=== PATIENT | male | born 1965 | race Caucasian/White ===

== ENCOUNTER 2018-01-09 07:22 | Day surgery (SDC) | payer OTHER, SELFPAY ==
[2018-01-09 07:43] VITALS: BP 144/72; PULSE 60; RESP 12; TEMP 36.5; O2SAT 97; BMI 40.6
--- NOTE | 2018-01-09 09:17 | PM.HP.1 ---
History of Present Illness Date Patient Seen: 01/09/18 Time Patient Seen: 09:09 Chief complaint: [id number] SCREENING COLONOSCOPY Narrative: Patient is a gentleman for screening colonoscopy. He has just turned 52. No family history of colon cancer. Patient History Medical History Healthy adult (Acute) Family & Social History Social History: household members spouse Tobacco & Substance use: Smoking Status Former smoker Meds Home Medications Medication Instructions Recorded Confirmed Type No Known Home Medications 10/09/17 10/09/17 History Allergies Allergy/AdvReac Type Severity Reaction Status Date / Time No Known Drug Allergies Allergy Verified 01/02/18 14:47 Review of Systems Review of Systems All systems reviewed & are unremarkable except as noted in HPI and below Exam Vital Signs (past 8 hours): - 01/09/18 07:43 Temperature 97.7 F Pulse Rate 60 Respiratory Rate 12 Blood Pressure 144/72 H Pulse Oximetry 97 Oxygen Delivery Method Room Air Narrative Exam Narrative: No apparent distress. Lungs are clear no rales rhonchi heart regular rate and rhythm no murmur or gallop abdomen is protuberant soft nontender without hernia. No liver or spleen enlargement. Patient is alert and oriented x3. Assessment & Plan Plan: Assessment/Plan Narrative: Here for screening colonoscopy. I have discussed the procedure and the rationale with the patient including risks of bleeding, perforation which would necessitate a major operation, failure to find remove all lesions and the potential to tattoo. They appeared to understand and wished to proceed.
--- NOTE | 2018-01-09 09:20 | PM.PREOP ---
Pre-operative Note Interval Note Pre-op Check: Yes History & Physical exam performed today by Physician Changes: No ASA Class (for procedural sedation): I
[2018-01-09] MEDS: MIDAZOLAM 5 MG/5 ML VIAL IV (09:50)
[2018-01-09] MEDS: fentaNYL 250 MCG/5 ML INJ IV (09:51)
[2018-01-09 10:07] VITALS: BP 114/61; PULSE 70; RESP 16; TEMP 36.4; O2SAT 97
--- NOTE | 2018-01-09 10:10 | PM.OP.ENDO ---
Operative Date/Time/Diagnoses Date of procedure: 01/09/18 Time of procedure: 10:10 Pre-op diagnosis: Screening exam. This is his 1st colonoscopy. He just turned 52. Post-op diagnosis: same (Normal exam) Procedure & Clinicians Study performed: Colonoscopy Same procedure as scheduled: Yes Indications: Screening due date age Surgeon: Gallo Kwon Procedure Notes SCOAP/Timeout: Performed Procedure in detail: The patient was placed in the left lateral decubitus position and underwent IV sedation directed by the surgeon consisting of fentanyl and Versed. Digital exam was unremarkable however I could not feel his prostate due to his anatomy and the length of my finger. The scope was inserted and advanced through the rectum into the sigmoid, descending, transverse, and ascending colon. The cecum was reached identified by the ileocecal valve and the appendiceal opening. The scope was gradually brought out. No Polyps were found. The scope ultimately was retroflexed in the rectum. The appearance was normal. The scope was removed and the patient tolerated the procedure well Scope withdrawal time: 14 min Sedation minutes: 38 Findings: other findings (Normal exam) Specimen(s): none sent Complications: none Recommendations: Colonscopy in 10 years Follow up: as needed Disposition: PACU
[2018-01-09 10:30] VITALS: BP 123/73; PULSE 50; TEMP 36.4; O2SAT 97
== END 2018-01-09 10:44 | disposition home or self-care (01) ==
PROVIDERS: Specialist; Visit Provider Surgery
PROC: 0DJD8ZZ Inspection of Lower Intestinal Tract, Via Natural or Artificial Opening Endoscopic (ICD-10-PCS; CPT 45378; principal; 2018-01-09 08:45)
DX: Z12.11 Encounter for screening for malignant neoplasm of colon (principal); Z87.891 Personal history of nicotine dependence
CPT/HCPCS: 45378; 99152; 99153; J2250; J3010

== ENCOUNTER → 2018-09-29 11:49 | Outpatient (CLI) | payer OTHER, SELFPAY ==
--- NOTE | 2018-09-29 | DI.RAD.S_ITS ---
PROCEDURE: XR KNEE RT 3V INDICATIONS: Rt knee pain TECHNIQUE: 3 views of the knee were acquired. COMPARISON: None. FINDINGS: Bones: No fractures or dislocations. Mild tricompartment osteophyte is seen. No suspicious bony lesions. Soft tissues: Moderate suprapatellar joint effusion is noted. No suspicious soft tissue calcifications. IMPRESSION: Mild tricompartment osteoarthritis and moderate suprapatellar joint effusion. No fracture or dislocation. Dictated by: Carlitos Burks M.D. on 09/29/2018 at 13:24 Approved by: Carlitos Burks M.D. on 09/29/2018 at 13:32
== END ==
PROVIDERS: PCP Family Medicine; Visit Provider Family Medicine
DX: M25.561 Pain in right knee (principal); M17.11 Unilateral primary osteoarthritis, right knee; M25.461 Effusion, right knee
CPT/HCPCS: 73562

== ENCOUNTER → 2019-02-23 14:41 | Outpatient (CLI) | payer OTHER, SELFPAY ==
--- NOTE | 2019-02-23 | DI.RAD.S_ITS ---
PROCEDURE: XR KNEE LT 3V INDICATIONS: LEFT KNEE PAIN TECHNIQUE: 3 views of the knee were acquired. COMPARISON: [facility], CR, XR KNEE RT 3V, 09/29/2018, 11:55. FINDINGS: Bones: No fractures or dislocations. Tricompartmental degenerative changes of the left knee with joint space narrowing of the medial femorotibial compartment. No suspicious bony lesions. Soft tissues: There is a small joint effusion. No suspicious soft tissue calcifications. IMPRESSION: 1. Tricompartmental left knee osteoarthrosis with joint space narrowing of the medial femorotibial compartment. 2. Small suprapatellar joint effusion. Dictated by: Gerard Romero M.D. on 02/23/2019 at 17:10 Approved by: Gerard Romero M.D. on 02/23/2019 at 17:12
== END ==
PROVIDERS: PCP Family Medicine; Visit Provider Family Medicine
DX: M25.562 Pain in left knee (principal); M17.11 Unilateral primary osteoarthritis, right knee; M25.462 Effusion, left knee
CPT/HCPCS: 73562

== ENCOUNTER → 2019-03-26 18:03 | Outpatient (CLI) | payer OTHER, SELFPAY ==
--- NOTE | 2019-03-26 18:05 | DI.MRI.S_ITS ---
PROCEDURE: MR KNEE LT WO CON INDICATIONS: PAIN IN LEFT KNEE TECHNIQUE: Noncontrast sagittal PD fast spin echo and T2 fast spin echo with fat saturation, sagittal 3-D FLASH with fat saturation; coronal T1 spin echo and PD fast spin echo with fat saturation, and axial PD fast spin echo with fat saturation through the knee. COMPARISON: [facility], CR, XR KNEE LT 3V, 02/23/2019, 14:47. FINDINGS: Image quality: Excellent. Menisci: Medial meniscal extrusion. There is a complex tear in the posterior horn of the medial meniscus near the posterior root ligament. Degenerative tear is noted in the body and posterior horn of the medial meniscus. The lateral meniscus demonstrates normal morphology and internal signal. Cruciate ligaments: The anterior cruciate ligament appears intact. The proximal posterior cruciate ligament is focally thickened and demonstrates mild increased signal, likely secondary to partial tear scarring. Medial structures: The medial collateral ligament appears intact. The semimembranosus tendon insertionsand meniscocapsular junction appear intact. Visualized portions of the pes anserinus tendons appear normal. No abnormal bursal fluid. Lateral structures: The lateral collateral ligament and the biceps femoris tendon appear intact. The popliteus tendon appears normal; the popliteofibular ligament appears intact. The posterosuperior and anteroinferior popliteomeniscal fascicles appear intact. The arcuate and fabellofibular ligaments appear intact, on either side of the lateral inferior geniculate artery. Iliotibial band appears normal. Anterior structures: The quadriceps and patellar tendons appear intact. Patellar alignment is normal. No femoral trochlear dysplasia or ventral trochlear prominence. No edema in the infrapatellar fat pad. Bones and cartilage: No fractures. There is pulmonary edema consistent with contusion in the medial femoral condyle and medial tibial plateau. The cartilage of the medial and lateral femorotibial compartments, as well as the patellofemoral compartment, appears normal in thickness. Joint space: There is moderate knee joint effusion. There is a moderate size Hobsno's cyst. Normal appearing synovial plicae are incidentally noted. IMPRESSION: 1. Complex tear involving the posterior horn of the medial meniscus near the posterior root ligament. In addition, there is degenerative tear of the body and posterior horn of the medial meniscus. 2. Chronic partial tear/scarring of the posterior cruciate ligament. 3. Bone marrow edema of the medial femoral condyle and medial tibial plateau, consistent with bone contusions. 4. Moderate knee joint effusion. 5. Moderate-sized Hobson's cyst. Dictated by: Ankit Diaz M.D. on 03/29/2019 at 10:36 Transcribed by: VALERIE on 03/29/2019 at 18:32 Approved by: Ankit Diaz M.D. on 03/30/2019 at 8:42
== END ==
PROVIDERS: PCP Family Medicine; Visit Provider Family Medicine
DX: M25.562 Pain in left knee (principal); S83.232A Complex tear of medial meniscus, current injury, left knee, initial encounter; S83.522A Sprain of posterior cruciate ligament of left knee, initial encounter; M25.462 Effusion, left knee; M71.22 Synovial cyst of popliteal space [Baker], left knee
CPT/HCPCS: 73721

== ENCOUNTER 2021-04-19 10:40 | Inpatient (IN) | payer OTHER, SELFPAY ==
[2021-04-19] VITALS (30 sets, daily range): BP systolic 113–156; BP diastolic 64–96; PULSE 53–146; RESP 12–25; TEMP 36.2–36.9; O2SAT 96–100; BMI 41.1; BMI 40.5
--- NOTE | 2021-04-19 10:55 | DI.RAD.S_ITS ---
PROCEDURE: XR CHEST 1V INDICATIONS: chest pain TECHNIQUE: One view of the chest was acquired. COMPARISON: None. FINDINGS: Surgical changes and devices: None. Lungs and pleura: An incomplete inspiratory result is noted, causing a crowded appearance to the lung markings. No focal infiltrates are seen. No pneumothorax or significant pleural effusions are seen. Mediastinum: Mediastinal contours appear normal. Heart size is normal. Bones and chest wall: No suspicious bony lesions. Age-appropriate bony degenerative changes are seen. Overlying soft tissues appear unremarkable. IMPRESSION: Limited portable chest examination, without a significant cardiopulmonary abnormality identified. Dictated by: Ivan Gutierrez M.D. on 04/19/2021 at 10:29 Approved by: Ivan Gutierrez M.D. on 04/19/2021 at 10:30
--- NOTE | 2021-04-19 11:10 | ED.ARRPALP ---
HPI - Arrhythmia/Palpitations General Chief Complaint: Arrhythmia/Palpitations Stated Complaint: Resting heart rate 144 Time Seen by Provider: 04/19/21 11:00 Source: patient Mode of arrival: Wheelchair Limitations: no limitations History of Present Illness HPI narrative: Patient is a 56-year-old male. No diagnosed medical problems. Here for evaluation of a fast heart rate. He states that 2 times prior in his life he has had episodes of a fast heart rate. Each of the times resolved after a couple hours. The episode that he currently has has been going on for the past 3 days. No chest pain. No shortness of breath. No lightheadedness. No headache. Did try will were essentially Valsalva maneuvers that were described to him by a provider in the past. These maneuvers were not successful. Since the symptoms were not improving he came to the emergency department for evaluation Related Data Home Medications Medication Instructions Recorded Confirmed No Known Home Medications 04/19/21 04/19/21 Allergies Allergy/AdvReac Type Severity Reaction Status Date / Time No Known Drug Allergies Allergy Verified 04/19/21 10:56 Review of Systems Constitutional Constitutional: Denies fever(s) Cardiovascular Cardiovascular: Denies chest pain, Reports rapid heart rate and Denies dyspnea Respiratory Respiratory: Denies cough and Denies dyspnea Gastrointestinal Gastrointestinal: Reports system reviewed and no additional complaints, except as documented Integumentary/Breasts Skin/Breast: Reports system reviewed and no additional complaints, except as documented Neurologic Neurologic: Reports system reviewed and no additional complaints, except as documented Hematologic/Lymphatic On Anticoagulants: No Allergic/Immunologic Allergic/Immunologic: Reports system reviewed and no additional complaints, except as documented Patient History Medical History Healthy adult Morbid obesity with BMI of 40.0-44.9, adult Obstructive sleep apnea of adult Primary insomnia Social History household members: spouse Smoking Status: Former smoker alcohol intake: current Smoking Status: Former smoker alcohol intake frequency: holidays/special occasions only Substance Use Type: does not use Exam Initial Vital Signs Initial Vital Signs: Vital Signs Temperature 98.5 F 04/19/21 10:50 Pulse Rate 144 H 04/19/21 10:50 Respiratory Rate 25 H 04/19/21 10:50 Blood Pressure 135/96 H 04/19/21 10:50 Pulse Oximetry 97 04/19/21 10:50 HENMT Head: normal to inspection and normocephalic Resp Effort & Inspection: normal respiratory effort Auscultation: clear to auscultation bilaterally Cardio Rate: tachycardic Rhythm: abnormal rhythm GI Inspection: normal to inspection Skin General: no rashes or lesions noted Neuro General: patient alert, patient awake, patient oriented x3 and moves all extremities Speech: speech normal Extrem General: normal to inspection and capillary refill normal Psych Appearance: grossly normal and well kempt Course Orders Ordered: ED Orders 04/19/21 10:50 NT-proBNP (BNP-Adult 18+) Stat Thyroid Stimulating Hormone Stat 04/19/21 10:55 XR chest 1V Stat Complete Blood Count AUTO DIFF Stat Comprehensive Metabolic Panel Stat Lipase Stat Magnesium Stat Partial Thromboplastin Time Stat Prothrombin Time INR Stat Troponin & CK Cardiac Panel Stat EKG-12 Lead Stat 04/19/21 11:00 COVID19 -Nasal swab/Pre-Proc Stat Acetaminophen (Acetaminophen 325 Mg Tablet) 650 mg PO Q6HR PRN PRN Reason: Fever/Mild Pain (1-3) Apixaban (Apixaban 5 Mg Tablet) 5 mg PO BID PITER Aspirin (Aspirin Ec 81 Mg Tablet) 81 mg PO DAILY PITER Atorvastatin Calcium (Atorvastatin 20 Mg Tablet) 40 mg PO BEDTIME PITER Diltiazem HCl (Diltiazem 30 Mg Tablet) 30 mg PO Q6HR PITER Last Admin: 04/19/21 15:20 Dose: 30 mg Documented by: LANDY Diltiazem HCl 125 mg/ Dextrose 125 mls @ 5 mls/hr IV TITRATE PITER; Protocol Last Titration: 04/19/21 15:04 Dose: 5 mg/hr, 5 mls/hr Documented by: Titration: 04/19/21 14:08 Dose: 10 mg/hr, 10 mls/hr Documented by: Titration: 04/19/21 13:50 Dose: 0 mg/hr, 0 mls/hr Documented by: Titration: 04/19/21 13:39 Dose: 10 mg/hr, 10 mls/hr Documented by: Titration: 04/19/21 12:06 Dose: 15 mg/hr, 15 mls/hr Documented by: Titration: 04/19/21 11:50 Dose: 10 mg/hr, 10 mls/hr Documented by: Admin: 04/19/21 11:36 Dose: 5 mg/hr, 5 mls/hr Documented by: ALEJANDRO Ondansetron HCl (Ondansetron 4 Mg/2 Ml Inj) 4 mg IV Q8HR PRN PRN Reason: Nausea And Vomiting Discontinued Medications Diltiazem HCl (Diltiazem 5 Mg/Ml Sdv) 10 mg IV NOW ONE Stop: 04/19/21 11:13 Last Admin: 04/19/21 11:27 Dose: 10 mg Documented by: ALEJANDRO Diltiazem HCl (Diltiazem 30 Mg Tablet) 90 mg PO Q6HR [facility] Last Admin: 04/19/21 15:44 Dose: Not Given Documented by: LANDY Diltiazem HCl (Diltiazem 30 Mg Tablet) 60 mg PO Q6HR [facility] Last Admin: 04/19/21 15:57 Dose: Not Given Documented by: LANDY Vital Signs Vital signs: Vital Signs - 8 hr 04/19/21 10:50 04/19/21 10:52 04/19/21 10:53 Temperature 98.5 F Pulse Rate 144 H 144 H 145 H Respiratory Rate 25 H 22 25 H Blood Pressure 135/96 H 135/96 H Pulse Oximetry 97 97 97 04/19/21 11:00 04/19/21 11:27 04/19/21 11:29 Temperature Pulse Rate 146 H 146 H 145 H Respiratory Rate 24 24 Blood Pressure 127/84 127/77 115/73 Pulse Oximetry 96 98 04/19/21 11:30 04/19/21 11:35 04/19/21 11:41 Temperature Pulse Rate 145 H 80 80 Respiratory Rate 23 20 21 Blood Pressure 116/76 113/65 132/74 Pulse Oximetry 99 100 99 04/19/21 11:50 04/19/21 12:00 04/19/21 12:01 Temperature Pulse Rate 81 143 H 124 H Respiratory Rate 21 19 17 Blood Pressure 118/79 156/73 H Pulse Oximetry 99 99 99 04/19/21 12:10 Temperature Pulse Rate 145 H Respiratory Rate 17 Blood Pressure 143/73 H Pulse Oximetry 99 MDM - Arrhythmia/Palpitations Lab Data Attestation: I reviewed the patient's lab results. Result diagrams: 04/19/21 10:55 04/19/21 10:55 Labs: Lab Results 04/19/21 04/19/21 04/19/21 Range/Units 10:50 10:50 10:55 WBC 8.8 (4.5-11.0) X10^3/uL RBC 5.27 (4.5-5.9) X10^6/uL Hgb 16.0 (13.5-17.5) g/dL Hct 46.2 (41-53) % MCV 87.6 (80-100) fL MCH 30.3 (26-34) PG MCHC 34.6 (30-36) % RDW 13.6 (11.6-14.8) % Plt Count 294 (150-400) X10^3/uL Neut % (Auto) 68.3 (50-75) % Lymph % (Auto) 23.8 L (25-40) % [place] % (Auto) 6.0 (3-14) % Eos % (Auto) 0.6 L (2-4) % Baso % (Auto) 1.3 (0-2) % Neut # (Auto) 6000 (8576-6372) /uL Lymph # (Auto) 2100 (5900-8638) /uL [place] # (Auto) 500 (0-900) /uL Eos # (Auto) 0 (0-450) /uL Baso # (Auto) 100 (0-100) /uL PT (10.1-12.7) SECONDS INR (0.9-1.3) APTT (26.4-36.2) SECONDS Sodium (137-145) mmol/L Potassium (3.4-5.1) mmol/L Chloride (98-107) mmol/L Carbon Dioxide (22-32) mmol/L BUN (9-20) mg/dL Creatinine (0.66-1.25) mg/dL Estimated GFR (>60) mL/min BUN/Creatinine Ratio (6-22) Glucose (70-100) mg/dL Calcium (8.4-10.2) mg/dL Magnesium (1.6-2.3) mg/dL Total Bilirubin (0.2-1.3) mg/dL AST (17-59) IU/L ALT (<50) IU/L Alkaline Phosphatase (38-126) U/L Total Creatine Kinase (55-170) U/L CK-MB (CK-2) (<2.37) ng/mL CK-MB (CK-2) Rel Index (1.5-5.0) % Troponin I (0.01-0.034) ng/mL NT-Pro-B Natriuret Pep 1150 H (<125) pg/mL Total Protein (6.3-8.2) g/dL Albumin (3.5-5.0) g/dL Globulin (1.7-4.1) g/dL Albumin/Globulin Ratio (1.0-2.8) Lipase (23-300) U/L TSH 1.24 (0.47-4.68) uIU/mL SARS-CoV-2 (PCR) (Negative) 04/19/21 04/19/21 04/19/21 Range/Units 10:55 10:55 11:00 WBC (4.5-11.0) X10^3/uL RBC (4.5-5.9) X10^6/uL Hgb (13.5-17.5) g/dL Hct (41-53) % MCV (80-100) fL MCH (26-34) PG MCHC (30-36) % RDW (11.6-14.8) % Plt Count (150-400) X10^3/uL Neut % (Auto) (50-75) % Lymph % (Auto) (25-40) % [place] % (Auto) (3-14) % Eos % (Auto) (2-4) % Baso % (Auto) (0-2) % Neut # (Auto) (5345-7310) /uL Lymph # (Auto) (3758-5623) /uL [place] # (Auto) (0-900) /uL Eos # (Auto) (0-450) /uL Baso # (Auto) (0-100) /uL PT 12.5 (10.1-12.7) SECONDS INR 1.1 (0.9-1.3) APTT 33 (26.4-36.2) SECONDS Sodium 139 (137-145) mmol/L Potassium 4.7 (3.4-5.1) mmol/L Chloride 107 (98-107) mmol/L Carbon Dioxide 24 (22-32) mmol/L BUN 24 H (9-20) mg/dL Creatinine 1.10 (0.66-1.25) mg/dL Estimated GFR > 60.0 (>60) mL/min BUN/Creatinine Ratio 21.8 (6-22) Glucose 141 H (70-100) mg/dL Calcium 9.8 (8.4-10.2) mg/dL Magnesium 2.5 H (1.6-2.3) mg/dL Total Bilirubin 0.6 (0.2-1.3) mg/dL AST 32 (17-59) IU/L ALT 35 (<50) IU/L Alkaline Phosphatase 56 (38-126) U/L Total Creatine Kinase 114 (55-170) U/L CK-MB (CK-2) 1.96 (<2.37) ng/mL CK-MB (CK-2) Rel Index 1.7 (1.5-5.0) % Troponin I 0.082 H (0.01-0.034) ng/mL NT-Pro-B Natriuret Pep (<125) pg/mL Total Protein 8.5 H (6.3-8.2) g/dL Albumin 4.7 (3.5-5.0) g/dL Globulin 3.8 (1.7-4.1) g/dL Albumin/Globulin Ratio 1.2 (1.0-2.8) Lipase 104 (23-300) U/L TSH (0.47-4.68) uIU/mL SARS-CoV-2 (PCR) Negative (Negative) Imaging Data Chest x-ray: Radiologist's Impresson: [address] [address] XRay Report Signed Patient: Reece Kerr MR#: [id number] : 1965 Acct:[id number] Age/Sex: 56 / M Date of Service: 04/19/21 Loc: ED Accession Number: [id number] ?? Procedure: XR chest 1V Ordering Provider: Venu Martino D.O. PROCEDURE:? XR CHEST 1V ? INDICATIONS:? chest pain ? TECHNIQUE:? One view of the chest was acquired.? ? COMPARISON:? None. ? FINDINGS:? ? Surgical changes and devices:? None.? ? Lungs and pleura:? An incomplete inspiratory result is noted, causing a crowded appearance to the lung markings.? No focal infiltrates are seen.? No pneumothorax or significant pleural effusions are seen. ? ? Mediastinum:? Mediastinal contours appear normal.? Heart size is normal.? ? Bones and chest wall:? No suspicious bony lesions.? Age-appropriate bony degenerative changes are seen.? Overlying soft tissues appear unremarkable.? ? ? IMPRESSION:? ? Limited portable chest examination, without a significant cardiopulmonary abnormality identified.? ? ? Dictated by: Ivan Gutierrez M.D. on 04/19/2021 at 10:29 ? ? Approved by: Ivan Gutierrez M.D. on 04/19/2021 at 10:30?? ECG Data Attestation: I personally reviewed and interpreted this ECG as follows: Interpretation: Atrial flutter Ventricular rate 147 2-1 AV block Left axis deviation Nonspecific ST T wave changes MDM Narrative Medical decision making narrative: Patient is not on anticoagulation. Has no diagnosis of atrial fibrillation. He does appear to be in a flutter with 2-1 block on his EKG. His blood pressure is unremarkable. Patient's symptoms been going on for greater than 48 hours. Unfortunately the fact that he has a lot on anticoagulation in the like the time of his symptoms he is not a candidate for cardioversion. Will start rate control. Patient does have a bump in his troponin and BNP however I feel this is most likely because of his elevated heart rate. He did respond somewhat to the diltiazem. Discussed the case with Dr. Oneill with Internal Medicine who will admit for further evaluation treatment. Discussed the need for the admission with the patient. He expressed understanding and agreement as well. Discharge Plan Departure Patient Disposition: Admitted As Inpatient Clinical Impression: Atrial flutter Admit Date/Time: 04/19/21 12:15 Admit Provider: Reji Oneill
[2021-04-19 11:12] LABS: Add Manual Diff / Slide Review NO; Basophils Absolute Auto 100 /uL (0-100); Basophils Percent Auto 1.3 % (0-2); Eosinophils Absolute Auto 0 /uL (0-450); Eosinophils Percent Auto 0.6 % (2-4); Hematocrit 46.2 % (41-53); Lymphocytes Absolute Auto 2100 /uL (1100-4500); Lymphocytes Percent Auto 23.8 % (25-40); Mean Corpuscular HGB Conc 34.6 % (30-36); Mean Corpuscular Hemoglobin 30.3 PG (26-34); Mean Corpuscular Volume 87.6 fL (80-100); Monocytes Absolute Auto 500 /uL (0-900); Neutrophils Absolute Auto 6000 /uL (1500-7000); Neutrophils Percent Auto 68.3 % (50-75); Platelet Count 294 X10^3/uL (150-400); Red Blood Cell Count 5.27 X10^6/uL (4.5-5.9); Red Cell Distribution Width 13.6 % (11.6-14.8); White Blood Cell Count 8.8 X10^3/uL (4.5-11.0)
[2021-04-19 11:19] LABS: INR 1.1 (0.9-1.3); Prothrombin Time 12.5 SECONDS (10.1-12.7)
[2021-04-19 11:22] LABS: PTT Partial Thromboplastin Tim 33 SECONDS (26.4-36.2)
[2021-04-19 11:24] LABS: Alanine Aminotransferase 35 IU/L (<50); Albumin 4.7 g/dL (3.5-5.0); Albumin Globulin Ratio 1.2 (1.0-2.8); Alkaline Phosphatase 56 U/L (38-126); Aspartate Aminotransferase 32 IU/L (17-59); BUN Creatinine Ratio 21.8 (6-22); Bilirubin Total 0.6 mg/dL (0.2-1.3); Blood Urea Nitrogen 24 mg/dL (9-20); Calcium 9.8 mg/dL (8.4-10.2); Carbon Dioxide 24 mmol/L (22-32); Chloride 107 mmol/L (98-107); Creatine Kinase 114 U/L (55-170); Estimated Glomerular Filt Rate > 60.0 mL/min (>60); Globulin 3.8 g/dL (1.7-4.1); Glucose 141 mg/dL (70-100); Lipase 104 U/L (23-300); Magnesium 2.5 mg/dL (1.6-2.3); Potassium 4.7 mmol/L (3.4-5.1); Sodium 139 mmol/L (137-145); Total Protein 8.5 g/dL (6.3-8.2)
[2021-04-19] MEDS: dilTIAZem 5 MG/ML SDV 10 MG IV (11:27)
[2021-04-19 11:35] LABS: Troponin I 0.082 ng/mL (0.01-0.034)
[2021-04-19] MEDS: dilTIAZem 125 MG in DEXTROSE 5 % IN WATER 100 ML IV (11:36)
[2021-04-19 11:39] LABS: CKMB % Relative Index 1.7 % (1.5-5.0); Creatine Kinase MB 1.96 ng/mL (<2.37); HEMOLYSIS 27 (0-50)
[2021-04-19 11:40] LABS: COVID19 -Nasal RAPID Negative (Negative)
[2021-04-19 11:42] LABS: NT-proBNP (BNP-Adult 18+) 1150 pg/mL (<125)
[2021-04-19 12:26] LABS: Thyroid Stimulating Hormone 1.24 uIU/mL (0.47-4.68)
--- NOTE | 2021-04-19 14:43 | P.HP_ITS ---
History of Present Illness History of Present Illness Date Patient Seen: 04/19/21 Time Patient Seen: 13:00 Chief complaint: Resting heart rate 144 Narrative: Mr. Kerr is a 56 with no significant PMH who presents to the hospital with palpitations from tachycardia. He notes he first noted the palpitations three days ago. He has had sweating and diaphoresis with this. He has no shortness of breath, no chest pain. He has had this multiple times previously starting as a teenager and he believes he has been recommended to start on blood thinners in the past. He went to a walk in clinic earlier today, and was referred to the ED. In the ED, vitals notable for heart rate in the 140s-150s, he was tachypneic in the 20s. Labs notable for WBC 8.8, hgb 16, creatinine 1.1, trop 0.082, BNP 1150, TSH 1.24. COVID negative. EKG concerning for atrial flutter. Chest xray showed no acute abnormalities. He was ordered for IV dilt push, which did not control his rate. He was started on IV dilt gtt. He had periods on tele which appeared to be 2:1 block of flutter in the 150s, 4:1 block in the 70-80 heart. He was admitted for further treatment. Family history: no cardiac history, CAD/CHF, arrhythmias in family Patient History Medical History Healthy adult Morbid obesity with BMI of 40.0-44.9, adult Obstructive sleep apnea of adult Primary insomnia Family & Social History Social History: household members spouse Prior Living Arrangements House Safety & Behavioral: Feels Safe in Current Yes Environment Been Physically Hurt or No Threatened By a Person Suicidal Ideation Description None Suicide Plan Description No Plan Tobacco & Substance use: Smoking Status Former smoker alcohol intake current alcohol intake frequency holiday/special occasion Substance Use Type does not use Meds Home Medications and Allergies Home Medications Medication Instructions Recorded Confirmed Type No Known Home Medications 04/19/21 04/19/21 History Allergies Allergy/AdvReac Type Severity Reaction Status Date / Time No Known Drug Allergies Allergy Verified 04/19/21 10:56 Review of Systems Review of Systems Narrative: 14 systems reviewed and negative aside from what is noted in HPI Exam Vital Signs (past 8 hours): - 04/19/21 10:50 04/19/21 10:52 04/19/21 10:53 Temperature 98.5 F Pulse Rate 144 H 144 H 145 H Respiratory Rate 25 H 22 25 H Blood Pressure 135/96 H 135/96 H Pulse Oximetry 97 97 97 04/19/21 11:00 04/19/21 11:27 04/19/21 11:29 Temperature Pulse Rate 146 H 146 H 145 H Respiratory Rate 24 24 Blood Pressure 127/84 127/77 115/73 Pulse Oximetry 96 98 04/19/21 11:30 04/19/21 11:35 04/19/21 11:41 Temperature Pulse Rate 145 H 80 80 Respiratory Rate 23 20 21 Blood Pressure 116/76 113/65 132/74 Pulse Oximetry 99 100 99 04/19/21 11:50 04/19/21 12:00 04/19/21 12:01 Temperature Pulse Rate 81 143 H 124 H Respiratory Rate 21 19 17 Blood Pressure 118/79 156/73 H Pulse Oximetry 99 99 99 04/19/21 12:10 04/19/21 12:21 04/19/21 12:30 Temperature Pulse Rate 145 H 76 90 Respiratory Rate 17 20 21 Blood Pressure 143/73 H 126/79 150/74 H Pulse Oximetry 99 04/19/21 12:40 04/19/21 12:50 04/19/21 13:00 Temperature Pulse Rate 79 80 80 Respiratory Rate 14 18 17 Blood Pressure 141/67 H 133/68 128/76 Pulse Oximetry 96 98 98 04/19/21 13:10 04/19/21 13:40 04/19/21 13:45 Temperature Pulse Rate 81 81 57 L Respiratory Rate 17 20 Blood Pressure 131/77 136/81 Pulse Oximetry 98 97 96 04/19/21 14:00 04/19/21 14:08 Temperature 97.2 F L Pulse Rate 81 Respiratory Rate 17 19 Blood Pressure 119/71 Pulse Oximetry 98 Oxygen Delivery Method Room Air Narrative Exam Narrative: GEN: no acute distress HEENT: moist mucous membranes NECK: trachea midline, no JVD CV: tachycardic irregular PULM: clear bilaterally, no wheezes, rhonchi, rales ABD: soft, nontender, nondistended, no organomegaly, normal bowel sounds EXT: warm and well perfused with no edema NEURO: awake, alert, oriented, no focal deficits PSYCH: pleasant Objective Labs Result Diagrams: 04/19/21 10:55 04/19/21 10:55 Labs: Laboratory Results - last 24 hr 04/19/21 04/19/21 04/19/21 10:50 10:50 10:55 WBC 8.8 RBC 5.27 Hgb 16.0 Hct 46.2 MCV 87.6 MCH 30.3 MCHC 34.6 RDW 13.6 Plt Count 294 Neut % (Auto) 68.3 Lymph % (Auto) 23.8 L [place] % (Auto) 6.0 Eos % (Auto) 0.6 L Baso % (Auto) 1.3 Neut # (Auto) 6000 Lymph # (Auto) 2100 [place] # (Auto) 500 Eos # (Auto) 0 Baso # (Auto) 100 PT INR APTT Sodium Potassium Chloride Carbon Dioxide BUN Creatinine Estimated GFR BUN/Creatinine Ratio Glucose Calcium Magnesium Total Bilirubin AST ALT Alkaline Phosphatase Total Creatine Kinase CK-MB (CK-2) CK-MB (CK-2) Rel Index Troponin I NT-Pro-B Natriuret Pep 1150 H Total Protein Albumin Globulin Albumin/Globulin Ratio Lipase TSH 1.24 SARS-CoV-2 (PCR) 04/19/21 04/19/21 04/19/21 10:55 10:55 11:00 WBC RBC Hgb Hct MCV MCH MCHC RDW Plt Count Neut % (Auto) Lymph % (Auto) [place] % (Auto) Eos % (Auto) Baso % (Auto) Neut # (Auto) Lymph # (Auto) [place] # (Auto) Eos # (Auto) Baso # (Auto) PT 12.5 INR 1.1 APTT 33 Sodium 139 Potassium 4.7 Chloride 107 Carbon Dioxide 24 BUN 24 H Creatinine 1.10 Estimated GFR > 60.0 BUN/Creatinine Ratio 21.8 Glucose 141 H Calcium 9.8 Magnesium 2.5 H Total Bilirubin 0.6 AST 32 ALT 35 Alkaline Phosphatase 56 Total Creatine Kinase 114 CK-MB (CK-2) 1.96 CK-MB (CK-2) Rel Index 1.7 Troponin I 0.082 H NT-Pro-B Natriuret Pep Total Protein 8.5 H Albumin 4.7 Globulin 3.8 Albumin/Globulin Ratio 1.2 Lipase 104 TSH SARS-CoV-2 (PCR) Negative Assessment & Plan Assessment & Plan narrative: Mr. Kerr is a 56M with no significant PMH who presented with chest palpitations found to have tachycardia with alternate episodes of atrial fibrillation and atrial flutter. 1. Atrial flutter/atrial fibrillation with RVR -had been tachycardic and symptomatic for over 48 hours -not on anticoagulation, so unable to cardiovert -started on IV diltiazem after IV dilt push did not control rate -heart rate somewhat improved with IV dilt gtt with periods of 2:1 atrial flutter, 4:1 atrial flutter, atrial fibrillation, and periods of possible sinus rhythm -heart rate improved at 15/hr on dilt gtt, will start PO dilt 90mg q6 and attempt weaning -may need additional rate control meds -ECHO ordered -TSH normal, chest xray unremarkable -chadsvasc2 = 1, discussed with patient and will start anticoagulation with apixaban 2. Elevated troponin -no chest pain or shortness of breath -EKG shows no STEMI -initial tropnonin 0.082, indeterminate, but most likely elevated secondary to demand due to tachycardia -ordered for aspirin and statin -trend troponins x3 -already on anticoagulation due to afib/flutter 3. Obesity -BMI 40.5 4. Presumed hypertension -patient has no documented history of hypertension -presents hypertensive here, and each visit going back over 2 years has had blood pressure consistently systolic >150 CODE: Full Proxy: Yokasta Abbott, spouse I have utilized all available resources to reconcile the patients home medications. Time Spent With Patient Critical Care time: I spent a total of [] minutes of critical care time on this patient's care today; this time is exclusive of procedural time. Quality VTE Deep Vein Thrombosis/Pulmonary Embolism Present on Admission: No MIPS - Admit I confirm the patient?s Advance Care Plan is present, Code status is documented, Surrogate decision maker is in patient?s record [If Yes, STOP here]: Yes
[2021-04-19] MEDS: dilTIAZem 30 MG TABLET PO (15:20)
--- NOTE | 2021-04-19 15:23 | PC.NURSE ---
day shift note Pt arrived via gurney from ED, able to ambulate from gurney to bed, connected to all monitoring equipment, VSS, diltiazem gtt infusing at 10mL/hr. at bedside, oriented pt to room and call light system. Dr Valencia at bedside, 1500 pt converted from AFib/Aflutter to NSR, transitioning to PO diltiazem, administered initial dose of 30mg PO. Bed low and locked, call light within reach, will continue to monitor.
--- NOTE | 2021-04-19 17:31 | P.DS_ITS ---
History of Present Illness History of Present Illness Chief complaint: Resting heart rate 144 Narrative: Mr. Kerr is a 56 with no significant PMH who presents to the hospital with palpitations from tachycardia. He notes he first noted the palpitations three days ago. He has had sweating and diaphoresis with this. He has no shortness of breath, no chest pain. He has had this multiple times previously starting as a teenager and he believes he has been recommended to start on blood thinners in the past. He went to a walk in clinic earlier today, and was referred to the ED. In the ED, vitals notable for heart rate in the 140s-150s, he was tachypneic in the 20s. Labs notable for WBC 8.8, hgb 16, creatinine 1.1, trop 0.082, BNP 1150, TSH 1.24. COVID negative. EKG concerning for atrial flutter. Chest xray showed no acute abnormalities. He was ordered for IV dilt push, which did not control his rate. He was started on IV dilt gtt. He had periods on tele which appeared to be 2:1 block of flutter in the 150s, 4:1 block in the 70-80 heart. He was admitted for further treatment. Family history: no cardiac history, CAD/CHF, arrhythmias in family Discharge Providers Provider Date of admission: 04/19/21 12:15 Discharge Date: 04/19/21 Primary care physician: Sloane Maravilla MD Discharge provider: Reji Oneill MD Summary Hospital Course Discharge Diagnosis: 1. Atrial flutter, atrial fibrillation with tachycardia 2. Elevated troponin 3. Probable Hypertension 4. Morbid obesity 5. JO[facility] [place] Hospital Course: Mr. Kerr was admitted to the hospital with atrial flutter with tachycardia. He was started on a diltiazem drip. He would transition between 4:1 flutter, 2:1 flutter, and atrial fibrillation. He then converted to sinus. Initial troponin was 0.08. After converting to sinus he requested to go home. He was recommended to observe for a longer period of time to check an ECHO, trend troponins, and monitor his heart rate as his diltiazem drip was stopped less than an hour before he left. He declined and left against medical advice. Exam Vital Signs (past 8 hours): - 04/19/21 10:50 04/19/21 10:52 04/19/21 10:53 Temperature 98.5 F Pulse Rate 144 H 144 H 145 H Respiratory Rate 25 H 22 25 H Blood Pressure 135/96 H 135/96 H Pulse Oximetry 97 97 97 04/19/21 11:00 04/19/21 11:27 04/19/21 11:29 Temperature Pulse Rate 146 H 146 H 145 H Respiratory Rate 24 24 Blood Pressure 127/84 127/77 115/73 Pulse Oximetry 96 98 04/19/21 11:30 04/19/21 11:35 04/19/21 11:41 Temperature Pulse Rate 145 H 80 80 Respiratory Rate 23 20 21 Blood Pressure 116/76 113/65 132/74 Pulse Oximetry 99 100 99 04/19/21 11:50 04/19/21 12:00 04/19/21 12:01 Temperature Pulse Rate 81 143 H 124 H Respiratory Rate 21 19 17 Blood Pressure 118/79 156/73 H Pulse Oximetry 99 99 99 04/19/21 12:10 04/19/21 12:21 04/19/21 12:30 Temperature Pulse Rate 145 H 76 90 Respiratory Rate 17 20 21 Blood Pressure 143/73 H 126/79 150/74 H Pulse Oximetry 99 04/19/21 12:40 04/19/21 12:50 04/19/21 13:00 Temperature Pulse Rate 79 80 80 Respiratory Rate 14 18 17 Blood Pressure 141/67 H 133/68 128/76 Pulse Oximetry 96 98 98 04/19/21 13:10 04/19/21 13:40 04/19/21 13:45 Temperature Pulse Rate 81 81 57 L Respiratory Rate 17 20 Blood Pressure 131/77 136/81 Pulse Oximetry 98 97 96 04/19/21 14:00 04/19/21 14:08 04/19/21 14:30 Temperature 97.2 F L Pulse Rate 81 81 Respiratory Rate 17 19 18 Blood Pressure 119/71 122/72 Pulse Oximetry 98 98 04/19/21 15:00 04/19/21 15:20 04/19/21 15:30 Temperature Pulse Rate 77 56 L 56 L Respiratory Rate 18 12 Blood Pressure 122/68 122/68 116/67 Pulse Oximetry 97 96 04/19/21 16:00 04/19/21 16:30 04/19/21 17:00 Temperature 97.4 F L Pulse Rate 53 L 56 L 65 Respiratory Rate 18 17 21 Blood Pressure 122/69 124/64 128/76 Pulse Oximetry 97 96 97 Oxygen Delivery Method Room Air Narrative Exam Narrative: GEN: no acute distress HEENT: moist mucous membranes NECK: trachea midline, no JVD CV: bradycardic, regular PULM: clear bilaterally, no wheezes, rhonchi, rales ABD: soft, nontender, nondistended, no organomegaly, normal bowel sounds EXT: warm and well perfused with no edema NEURO: awake, alert, oriented, no focal deficits PSYCH: pleasant Objective Labs Result Diagrams: 04/19/21 10:55 04/19/21 10:55 Labs: Laboratory Results - last 24 hr 04/19/21 04/19/21 04/19/21 10:50 10:50 10:55 WBC 8.8 RBC 5.27 Hgb 16.0 Hct 46.2 MCV 87.6 MCH 30.3 MCHC 34.6 RDW 13.6 Plt Count 294 Neut % (Auto) 68.3 Lymph % (Auto) 23.8 L [place] % (Auto) 6.0 Eos % (Auto) 0.6 L Baso % (Auto) 1.3 Neut # (Auto) 6000 Lymph # (Auto) 2100 [place] # (Auto) 500 Eos # (Auto) 0 Baso # (Auto) 100 PT INR APTT Sodium Potassium Chloride Carbon Dioxide BUN Creatinine Estimated GFR BUN/Creatinine Ratio Glucose Calcium Magnesium Total Bilirubin AST ALT Alkaline Phosphatase Total Creatine Kinase CK-MB (CK-2) CK-MB (CK-2) Rel Index Troponin I NT-Pro-B Natriuret Pep 1150 H Total Protein Albumin Globulin Albumin/Globulin Ratio Lipase TSH 1.24 Nasal Screen MRSA (PCR) SARS-CoV-2 (PCR) 04/19/21 04/19/21 04/19/21 10:55 10:55 11:00 WBC RBC Hgb Hct MCV MCH MCHC RDW Plt Count Neut % (Auto) Lymph % (Auto) [place] % (Auto) Eos % (Auto) Baso % (Auto) Neut # (Auto) Lymph # (Auto) [place] # (Auto) Eos # (Auto) Baso # (Auto) PT 12.5 INR 1.1 APTT 33 Sodium 139 Potassium 4.7 Chloride 107 Carbon Dioxide 24 BUN 24 H Creatinine 1.10 Estimated GFR > 60.0 BUN/Creatinine Ratio 21.8 Glucose 141 H Calcium 9.8 Magnesium 2.5 H Total Bilirubin 0.6 AST 32 ALT 35 Alkaline Phosphatase 56 Total Creatine Kinase 114 CK-MB (CK-2) 1.96 CK-MB (CK-2) Rel Index 1.7 Troponin I 0.082 H NT-Pro-B Natriuret Pep Total Protein 8.5 H Albumin 4.7 Globulin 3.8 Albumin/Globulin Ratio 1.2 Lipase 104 TSH Nasal Screen MRSA (PCR) SARS-CoV-2 (PCR) Negative 04/19/21 13:23 WBC RBC Hgb Hct MCV MCH MCHC RDW Plt Count Neut % (Auto) Lymph % (Auto) [place] % (Auto) Eos % (Auto) Baso % (Auto) Neut # (Auto) Lymph # (Auto) [place] # (Auto) Eos # (Auto) Baso # (Auto) PT INR APTT Sodium Potassium Chloride Carbon Dioxide BUN Creatinine Estimated GFR BUN/Creatinine Ratio Glucose Calcium Magnesium Total Bilirubin AST ALT Alkaline Phosphatase Total Creatine Kinase CK-MB (CK-2) CK-MB (CK-2) Rel Index Troponin I NT-Pro-B Natriuret Pep Total Protein Albumin Globulin Albumin/Globulin Ratio Lipase TSH Nasal Screen MRSA (PCR) Negative for mrsa SARS-CoV-2 (PCR) PFSH Medical History Healthy adult Morbid obesity with BMI of 40.0-44.9, adult Obstructive sleep apnea of adult Primary insomnia Social History household members: spouse Smoking Status: Former smoker alcohol intake: current Discharge Plan Discharge Plan Patient Disposition: Left Against Medical Advice Provider Discharge Comment: left AMA Discharge orders & Medications Prescriptions: New Eliquis 5 mg Tablet 5 mg PO BID Qty: 60 0RF diltiazem HCl 120 mg capsule,extended release 24hr 120 mg PO DAILY Qty: 30 0RF Follow up/Referrals: Sloane Maravilla MD [Primary Care Provider] - Discharge Data Primary Care Provider: Sloane Maravilla Quality VTE Deep Vein Thrombosis/Pulmonary Embolism Present on Admission: No
[2021-04-19 18:02] LABS: Troponin I 0.122 ng/mL (0.01-0.034)
== END 2021-04-19 17:49 | disposition left against medical advice (07) | DRG 309 ==
LOC: ED 11:13 → AC 12:16 → ICU 13:47
PROVIDERS: Admitting Provider Internal Medicine; Emergency Provider Emergency Medicine; PCP Family Medicine; Referring Provider Emergency Medicine; Visit Provider Internal Medicine
DX: I48.91 Unspecified atrial fibrillation (principal); I24.8 Other forms of acute ischemic heart disease; I48.92 Unspecified atrial flutter; R00.0 Tachycardia, unspecified; I10 Essential (primary) hypertension; Z20.822 Contact with and (suspected) exposure to COVID-19; Z87.891 Personal history of nicotine dependence; Z53.29 Procedure and treatment not carried out because of patient's decision for other reasons
CPT/HCPCS: 36415; 71045; 80053; 82550; 82553; 83690; 83735; 83880; 84443; 84484; 85025; 85610; 85730; 87635; 87797; 93005; 96365; 96366; 96376; 99284; C9803

== ENCOUNTER → 2021-07-13 08:52 | Outpatient (CLI) | payer OTHER, SELFPAY ==
[2021-04-19 14:20] VITALS: BMI 40.5
[2021-07-13 09:56] LABS: Influenza A - CEPHEID Flu A NEGATIVE (NEGATIVE); Influenza B - CEPHEID Flu B NEGATIVE (NEGATIVE)
[2021-07-13 10:02] LABS: COVID-19 CEPHEID PCR (VTM/NP) Negative (Negative)
== END ==
PROVIDERS: PCP Family Medicine; Visit Provider Nurse Practitioner Family
DX: R05.9 Cough, unspecified (principal); Z20.822 Contact with and (suspected) exposure to COVID-19
CPT/HCPCS: 0240U

== ENCOUNTER 2021-07-22 01:44 | Emergency (ER) | payer OTHER, SELFPAY ==
[2021-07-17 08:55] VITALS: BMI 40.5
[2021-07-22] VITALS (30 sets, daily range): BP systolic 172–221; BP diastolic 75–113; PULSE 52–74; RESP 16–18; TEMP 36.5; O2SAT 92–98; BMI 41.2
--- NOTE | 2021-07-22 01:58 | ED.GENADULT ---
HPI - General Adult <Prabhu Power DO - Last Filed: 07/22/21 23:06> General Chief complaint: Neuro Symptoms/Deficit Stated complaint: cold/sinus/tingling body/aches x14 days Time Seen by Provider: 07/22/21 01:46 History of Present Illness HPI narrative: 56-year-old male former smoker with history of atrial flutter on apixaban and obstructive sleep apnea presents with significant other and various complaints at a been worsening over the past 2 weeks. He states that he had a rather significant upper respiratory infection about 2 weeks ago including runny nose, nasal congestion some sore throat and a harsh cough. He denies any fever or chills but has been having body aches ever since. He was seen and evaluated at the walk-in clinic and thought to have a viral upper respiratory infection after a negative swab for flu and COVID. He was discharged with Tessalon and prednisone but after 2 days had increasing right facial pain and bloody in purulence nasal drainage. He was re-evaluated and started on Augmentin. He has continued to have body aches but states cough and some of the upper respiratory complaints have improved such as nasal congestion and runny nose. He has been having generalized headache that is significantly worse with sneezing or cough for the past few days and states it came on gradually. He does not have neck pain but the base of his skull is a bit tender. He denies neurologic symptoms such as blurred vision, trouble speech or dizziness but does state that starting Friday morning he started having numbness in his toes and on the dorsum of his feet and is has since worked its way up to his knees and also somewhat in his right hand. He denies any recent injury or trauma. He walked in under his own power but he states he feels like his knees are weak. Related Data Previous Rx's Medication Instructions Recorded apixaban 5 mg tablet (Eliquis) 5 mg PO BID #60 tab 04/19/21 diltiazem HCl 120 mg 120 mg PO DAILY #30 cap 04/19/21 capsule,extended release 24 hr albuterol sulfate 90 mcg/actuation 2 puff INHALATION Q6H PRN #6.7 g 07/13/21 aerosol inhaler benzonatate 100 mg capsule 100 mg PO BID PRN #20 cap 07/13/21 Allergies Allergy/AdvReac Type Severity Reaction Status Date / Time No Known Drug Allergies Allergy Verified 07/15/21 10:27 Review of Systems <Prabhu Power DO - Last Filed: 07/22/21 23:06> Review of Systems Narrative: GENERAL: See HPI HEENT: See HPI RESPIRATORY: See HPI CARDIOVASCULAR: Denies chest pain, palpitations, orthopnea, edema, GASTROINTESTINAL: Denies nausea, vomiting, abdominal pain, diarrhea, constipation, melena. : Denies dysuria, frequency, incontinence, hematuria, urinary retention. MUSCULOSKELETAL: See HPI SKIN: Denies rash, skin lesions, or other NEUROLOGIC: See HPI PSYCHIATRIC: No concerning psychosocial issues. 12 point review of systems is negative except for those stated above Patient History <Prabhu Power DO - Last Filed: 07/22/21 23:06> Medical History Healthy adult Morbid obesity with BMI of 40.0-44.9, adult Obstructive sleep apnea of adult Primary insomnia Social History household members: spouse Smoking Status: Former smoker alcohol intake: current Smoking Status: Former smoker alcohol intake frequency: holidays/special occasions only Substance Use Type: does not use Exam <Prabhu Power DO - Last Filed: 07/22/21 23:06> Narrative Exam Narrative: GENERAL: [56] year old patient appears stated age. Well-developed patient, in mild distress. GCS 15 HEAD: Atraumatic. Normocephalic. EYES: Pupils equal round and reactive. Extraocular motions intact. No scleral icterus. No injection or drainage. ENT: Nose without bleeding, purulent drainage. Throat without erythema, tonsillar hypertrophy or exudate. Airway patent. NECK: Trachea midline. Non tender, no meningeal signs such as current mix or Brudzinski's CARDIOVASCULAR: Regular rate and rhythm without murmurs, gallops, or rubs. RESPIRATORY: Clear to auscultation. Breath sounds equal bilaterally. No wheezes, rales, or rhonchi. GASTROINTESTINAL: Abdomen soft, non-tender, nondistended. EXTREMITIES: No edema or joint tenderness. BACK: Nontender without deformity or crepitance. No flank tenderness. NEURO: AOx3. CN 2-12 grossly in tact. 5/5 strength in bilateral lower extremities. Patellar reflexes 2+ B/L. SKIN: No rash or erythema of visible areas Initial Vital Signs Initial Vital Signs: Vital Signs Pulse Rate 73 07/22/21 01:51 Pulse Oximetry 98 07/22/21 01:51 <Venu Martino DO - Last Filed: 07/22/21 13:37> Initial Vital Signs Initial Vital Signs: Vital Signs Pulse Rate 73 07/22/21 01:51 Pulse Oximetry 98 07/22/21 01:51 Procedures <Prabhu Power DO - Last Filed: 07/22/21 23:06> Lumbar Puncture Time of procedure: 03:30 Time Out Performed: Yes Patient Position: upright Skin Prep: 0.5% Chlorhexidine/Alcohol Local Anesthetic: lidocaine 1% Amount of anesthesia used (mL): 4 Spinal Needle Gauge: 22G Interspace Used: L4-L5 Fluid Initially Obtained: clear Complications: none Course <Prabhu Power DO - Last Filed: 07/22/21 23:06> Orders Ordered: Discontinued Medications Acetaminophen (Acetaminophen 325 Mg Tablet) 975 mg PO NOW ONE Stop: 07/22/21 05:40 Last Admin: 07/22/21 05:44 Dose: 975 mg Documented by: JOSE Acetaminophen (Acetaminophen 325 Mg Tablet) 975 mg PO NOW ONE Stop: 07/22/21 10:25 Last Admin: 07/22/21 10:45 Dose: 975 mg Documented by: NIGAHT Sodium Chloride (Normal Saline 0.9%) 1,000 mls @ 1,000 mls/hr IV BOLUS ONE Stop: 07/22/21 04:51 Last Infusion: 07/22/21 05:41 Dose: 0 mls/hr Documented by: Admin: 07/22/21 04:03 Dose: 1,000 mls/hr Documented by: JOSE Immune Globulin 60 gm/ (Miscellaneous) 601 mls @ 0 mls/hr IV NOW ONE Stop: 07/22/21 05:42 Ketorolac Tromethamine (Ketorolac 30 Mg/Ml Vial) 15 mg IV NOW ONE Stop: 07/22/21 03:53 Last Admin: 07/22/21 04:03 Dose: 15 mg Documented by: JOSE Metoclopramide HCl (Metoclopramide 10 Mg/2 Ml Inj) 10 mg IV NOW ONE Stop: 07/22/21 03:53 Last Admin: 07/22/21 04:02 Dose: 10 mg Documented by: JOSE Consultations Consultation #1: [id number] - call to [facility] regarding concern for early [place] 0500 - Dr. Patel ([facility]) agrees with concern and likely diagnosis of GB. Agrees with need and appropriateness of transfer. Recommends IVIG 0.4g/kg and MR w/contrast of C/T/L spine, admission to [facility] 0530 - Dr. Gurrola ([facility]) accepts. No beds currently, expect bed this morning after discharges Vital Signs Vital signs: Vital Signs - 8 hr 07/22/21 06:00 07/22/21 06:01 07/22/21 06:30 Pulse Rate 60 60 62 Respiratory Rate Blood Pressure 185/95 H Pulse Oximetry 96 96 98 07/22/21 06:33 07/22/21 07:00 07/22/21 07:01 Pulse Rate 57 L 52 L 52 L Respiratory Rate Blood Pressure 173/81 H 192/92 H Pulse Oximetry 97 95 95 07/22/21 07:30 07/22/21 07:31 07/22/21 08:00 Pulse Rate 57 L 62 62 Respiratory Rate Blood Pressure 200/91 H Pulse Oximetry 94 94 97 07/22/21 08:15 07/22/21 10:08 07/22/21 10:11 Pulse Rate 67 67 65 Respiratory Rate Blood Pressure 183/88 H 186/85 H Pulse Oximetry 96 94 92 07/22/21 10:15 07/22/21 10:30 07/22/21 10:39 Pulse Rate 71 71 69 Respiratory Rate Blood Pressure 178/99 H 184/83 H Pulse Oximetry 94 92 94 07/22/21 10:40 07/22/21 11:14 Pulse Rate 73 71 Respiratory Rate 18 Blood Pressure 183/86 H 183/86 H Pulse Oximetry 94 94 <Venu Martino DO - Last Filed: 07/22/21 13:37> Orders Ordered: Discontinued Medications Acetaminophen (Acetaminophen 325 Mg Tablet) 975 mg PO NOW ONE Stop: 07/22/21 05:40 Last Admin: 07/22/21 05:44 Dose: 975 mg Documented by: JOSE Acetaminophen (Acetaminophen 325 Mg Tablet) 975 mg PO NOW ONE Stop: 07/22/21 10:25 Last Admin: 07/22/21 10:45 Dose: 975 mg Documented by: NIGHAT Sodium Chloride (Normal Saline 0.9%) 1,000 mls @ 1,000 mls/hr IV BOLUS ONE Stop: 07/22/21 04:51 Last Infusion: 07/22/21 05:41 Dose: 0 mls/hr Documented by: Admin: 07/22/21 04:03 Dose: 1,000 mls/hr Documented by: JOSE Immune Globulin 60 gm/ (Miscellaneous) 601 mls @ 0 mls/hr IV NOW ONE Stop: 07/22/21 05:42 Ketorolac Tromethamine (Ketorolac 30 Mg/Ml Vial) 15 mg IV NOW ONE Stop: 07/22/21 03:53 Last Admin: 07/22/21 04:03 Dose: 15 mg Documented by: JOSE Metoclopramide HCl (Metoclopramide 10 Mg/2 Ml Inj) 10 mg IV NOW ONE Stop: 07/22/21 03:53 Last Admin: 07/22/21 04:02 Dose: 10 mg Documented by: JOSE Vital Signs Vital signs: Vital Signs - 8 hr 07/22/21 06:00 07/22/21 06:01 07/22/21 06:30 Pulse Rate 60 60 62 Respiratory Rate Blood Pressure 185/95 H Pulse Oximetry 96 96 98 07/22/21 06:33 07/22/21 07:00 07/22/21 07:01 Pulse Rate 57 L 52 L 52 L Respiratory Rate Blood Pressure 173/81 H 192/92 H Pulse Oximetry 97 95 95 07/22/21 07:30 07/22/21 07:31 07/22/21 08:00 Pulse Rate 57 L 62 62 Respiratory Rate Blood Pressure 200/91 H Pulse Oximetry 94 94 97 07/22/21 08:15 07/22/21 10:08 07/22/21 10:11 Pulse Rate 67 67 65 Respiratory Rate Blood Pressure 183/88 H 186/85 H Pulse Oximetry 96 94 92 07/22/21 10:15 07/22/21 10:30 07/22/21 10:39 Pulse Rate 71 71 69 Respiratory Rate Blood Pressure 178/99 H 184/83 H Pulse Oximetry 94 92 94 05/01/22 10:40 07/22/21 11:14 Pulse Rate 73 71 Respiratory Rate 18 Blood Pressure 183/86 H 183/86 H Pulse Oximetry 94 94 Medical Decision Making <Prabhu Power DO - Last Filed: 07/22/21 23:06> Lab Data Result diagrams: 07/22/21 02:10 07/22/21 02:10 Labs: Lab Results 07/22/21 07/22/21 07/22/21 Range/Units 02:10 02:10 02:10 WBC 8.7 (4.5-11.0) X10^3/uL RBC 5.05 (4.5-5.9) X10^6/uL Hgb 15.1 (13.5-17.5) g/dL Hct 44.0 (41-53) % MCV 87.1 (80-100) fL MCH 29.8 (26-34) PG MCHC 34.3 (30-36) % RDW 13.3 (11.6-14.8) % Plt Count 321 (150-400) X10^3/uL Neut % (Auto) 68.8 (50-75) % Lymph % (Auto) 21.0 L (25-40) % Leake % (Auto) 7.1 (3-14) % Eos % (Auto) 1.8 L (2-4) % Baso % (Auto) 1.3 (0-2) % Neut # (Auto) 6000 (7773-6436) /uL Lymph # (Auto) 1800 (1136-2881) /uL Leake # (Auto) 600 (0-900) /uL Eos # (Auto) 200 (0-450) /uL Baso # (Auto) 100 (0-100) /uL Sodium 141 (137-145) mmol/L Potassium 3.7 (3.4-5.1) mmol/L Chloride 103 (98-107) mmol/L Carbon Dioxide 28 (22-32) mmol/L BUN 15 (9-20) mg/dL Creatinine 0.79 (0.66-1.25) mg/dL Estimated GFR > 60 (>60) mL/min BUN/Creatinine Ratio 19.0 (6-22) Glucose 182 H (70-100) mg/dL Calcium 9.2 (8.4-10.2) mg/dL Magnesium 2.2 (1.6-2.3) mg/dL Total Bilirubin 0.4 (0.2-1.3) mg/dL AST 23 (17-59) IU/L ALT 29 (<50) IU/L Alkaline Phosphatase 65 (38-126) U/L Total Creatine Kinase 47 L (55-170) U/L CK-MB (CK-2) TNP CK-MB (CK-2) Rel Index TNP Troponin I < 0.012 (0.01-0.034) ng/mL Total Protein 8.1 (6.3-8.2) g/dL Albumin 4.4 (3.5-5.0) g/dL Globulin 3.7 (1.7-4.1) g/dL Albumin/Globulin Ratio 1.2 (1.0-2.8) Urine RBC (0-5/HPF) Urine WBC (0-5/HPF) Urine Bacteria (None) Ur Culture Indicated? CSF Tube Number CSF Volume CSF Appearance (Clear) CSF Color (Colorless) CSF WBC (0-5) MONO/uL CSF RBC RBC /uL CSF Mononuclear WBCs CSF Polynuclear WBCs CSF Glucose (40-70) mg/dL CSF Total Protein (12-60) mg/dL CSF C.neoform/gat PCR (Not Detect) CSF CMV DNA (PCR) (Not Detect) CSF Enterovirus (PCR) (Not Detect) CSF E. coli (PCR) (Not Detect) CSF H. influenzae (PCR) (Not Detect) CSF HSV I (PCR) (Not Detect) CSF HSV II (PCR) (Not Detect) CSF HHV 6 (PCR) (Not Detect) CSF L.monocytogenes PCR (Not Detect) CSF N. meningitidis PCR (Not Detect) CSF Parechovirus (PCR) (Not Detect) CSF S. agalactiae (PCR) (Not Detect) CSF S. pneumoniae (PCR) (Not Detect) CSF VZV (PCR) (Not Detecte) Chlamy pneumoniae PCR Not detected (Not Detect) Adenovirus (PCR) Not detected (Not Detect) B. pertussis DNA (PCR) Not detected (Not Detecte) B.parapertussis DNA PCR Not detected (Not Detecte) Coronavirus OC43 (PCR) Not detected (Not Detect) Coronavirus HKU1 (PCR) Not detected (Not Detect) Coronavirus 229E (PCR) Not detected (Not Detect) SARS-CoV-2 (PCR) Not detected (Not Detecte) Coronavirus NL63 (PCR) Not detected (Not Detect) Human Metapneumovir PCR Not detected (Not Detect) Influenza Type A (PCR) Not detected (Not Detect) Influenza Type B (PCR) Not detected (Not Detect) M. pneumoniae (PCR) Not detected (Not Detect) Parainfluenza 1 (PCR) Not detected (Not Detect) Parainfluenza 2 (PCR) Not detected (Not Detect) Parainfluenza 3 (PCR) Not detected (Not Detect) Parainfluenza 4 (PCR) Not detected (Not Detect) RSV (PCR) Not detected (Not Detect) Entero/Rhino (PCR) Not detected (Not Detect) 07/22/21 07/22/21 07/22/21 Range/Units 03:15 03:30 03:30 WBC (4.5-11.0) X10^3/uL RBC (4.5-5.9) X10^6/uL Hgb (13.5-17.5) g/dL Hct (41-53) % MCV (80-100) fL MCH (26-34) PG MCHC (30-36) % RDW (11.6-14.8) % Plt Count (150-400) X10^3/uL Neut % (Auto) (50-75) % Lymph % (Auto) (25-40) % Leake % (Auto) (3-14) % Eos % (Auto) (2-4) % Baso % (Auto) (0-2) % Neut # (Auto) (8715-6123) /uL Lymph # (Auto) (4802-2215) /uL Leake # (Auto) (0-900) /uL Eos # (Auto) (0-450) /uL Baso # (Auto) (0-100) /uL Sodium (137-145) mmol/L Potassium (3.4-5.1) mmol/L Chloride (98-107) mmol/L Carbon Dioxide (22-32) mmol/L BUN (9-20) mg/dL Creatinine (0.66-1.25) mg/dL Estimated GFR (>60) mL/min BUN/Creatinine Ratio (6-22) Glucose (70-100) mg/dL Calcium (8.4-10.2) mg/dL Magnesium (1.6-2.3) mg/dL Total Bilirubin (0.2-1.3) mg/dL AST (17-59) IU/L ALT (<50) IU/L Alkaline Phosphatase (38-126) U/L Total Creatine Kinase (55-170) U/L CK-MB (CK-2) CK-MB (CK-2) Rel Index Troponin I (0.01-0.034) ng/mL Total Protein (6.3-8.2) g/dL Albumin (3.5-5.0) g/dL Globulin (1.7-4.1) g/dL Albumin/Globulin Ratio (1.0-2.8) Urine RBC 0-1/hpf (0-5/HPF) Urine WBC None seen (0-5/HPF) Urine Bacteria None seen (None) Ur Culture Indicated? Cult not indicated CSF Tube Number 3 CSF Volume 1.0 ml CSF Appearance Clear (Clear) CSF Color Colorless (Colorless) CSF WBC 3 (0-5) MONO/uL CSF RBC 0 RBC /uL CSF Mononuclear WBCs TNP CSF Polynuclear WBCs TNP CSF Glucose 96 H (40-70) mg/dL CSF Total Protein 293 H* (12-60) mg/dL CSF C.neoform/gat PCR Not detected (Not Detect) CSF CMV DNA (PCR) Not detected (Not Detect) CSF Enterovirus (PCR) Not detected (Not Detect) CSF E. coli (PCR) Not detected (Not Detect) CSF H. influenzae (PCR) Not detected (Not Detect) CSF HSV I (PCR) Not detected (Not Detect) CSF HSV II (PCR) Not detected (Not Detect) CSF HHV 6 (PCR) Not detected (Not Detect) CSF L.monocytogenes PCR Not detected (Not Detect) CSF N. meningitidis PCR Not detected (Not Detect) CSF Parechovirus (PCR) Not detected (Not Detect) CSF S. agalactiae (PCR) Not detected (Not Detect) CSF S. pneumoniae (PCR) Not detected (Not Detect) CSF VZV (PCR) Not detected (Not Detecte) Chlamy pneumoniae PCR (Not Detect) Adenovirus (PCR) (Not Detect) B. pertussis DNA (PCR) (Not Detecte) B.parapertussis DNA PCR (Not Detecte) Coronavirus OC43 (PCR) (Not Detect) Coronavirus HKU1 (PCR) (Not Detect) Coronavirus 229E (PCR) (Not Detect) SARS-CoV-2 (PCR) (Not Detecte) Coronavirus NL63 (PCR) (Not Detect) Human Metapneumovir PCR (Not Detect) Influenza Type A (PCR) (Not Detect) Influenza Type B (PCR) (Not Detect) M. pneumoniae (PCR) (Not Detect) Parainfluenza 1 (PCR) (Not Detect) Parainfluenza 2 (PCR) (Not Detect) Parainfluenza 3 (PCR) (Not Detect) Parainfluenza 4 (PCR) (Not Detect) RSV (PCR) (Not Detect) Entero/Rhino (PCR) (Not Detect) Urine Dip Bedside Urine Glucose Negative Bedside Urine Bilirubin - Negative Bedside Urine Ketone - Negative Urine Specific [place] 1.20 Bedside Urine Occult Blood +/- Bedside Urine pH 6.0 Bedside Urine Protein - Negative Bedside Urine Urobilinogen - Negative Bedside Urine Nitrite - Negative Bedside Urine Leukocytes - Negative Esterase Point of care testing: Urine Dip Bedside Urine Glucose Negative Bedside Urine Bilirubin - Negative Bedside Urine Ketone - Negative Urine Specific [place] 1.20 Bedside Urine Occult Blood +/- Bedside Urine pH 6.0 Bedside Urine Protein - Negative Bedside Urine Urobilinogen - Negative Bedside Urine Nitrite - Negative Bedside Urine Leukocytes - Negative Esterase <Venu Martino, - Last Filed: 07/22/21 13:37> Lab Data Labs: Lab Results 07/22/21 07/22/21 07/22/21 Range/Units 02:10 02:10 02:10 WBC 8.7 (4.5-11.0) X10^3/uL RBC 5.05 (4.5-5.9) X10^6/uL Hgb 15.1 (13.5-17.5) g/dL Hct 44.0 (41-53) % MCV 87.1 (80-100) fL MCH 29.8 (26-34) PG MCHC 34.3 (30-36) % RDW 13.3 (11.6-14.8) % Plt Count 321 (150-400) X10^3/uL Neut % (Auto) 68.8 (50-75) % Lymph % (Auto) 21.0 L (25-40) % [place]ake % (Auto) 7.1 (3-14) % Eos % (Auto) 1.8 L (2-4) % Baso % (Auto) 1.3 (0-2) % Neut # (Auto) 6000 (4195-2525) /uL Lymph # (Auto) 1800 (6879-7978) /uL [place]ake # (Auto) 600 (0-900) /uL Eos # (Auto) 200 (0-450) /uL Baso # (Auto) 100 (0-100) /uL Sodium 141 (137-145) mmol/L Potassium 3.7 (3.4-5.1) mmol/L Chloride 103 (98-107) mmol/L Carbon Dioxide 28 (22-32) mmol/L BUN 15 (9-20) mg/dL Creatinine 0.79 (0.66-1.25) mg/dL Estimated GFR > 60 (>60) mL/min BUN/Creatinine Ratio 19.0 (6-22) Glucose 182 H (70-100) mg/dL Calcium 9.2 (8.4-10.2) mg/dL Magnesium 2.2 (1.6-2.3) mg/dL Total Bilirubin 0.4 (0.2-1.3) mg/dL AST 23 (17-59) IU/L ALT 29 (<50) IU/L Alkaline Phosphatase 65 (38-126) U/L Total Creatine Kinase 47 L (55-170) U/L CK-MB (CK-2) TNP CK-MB (CK-2) Rel Index TNP Troponin I < 0.012 (0.01-0.034) ng/mL Total Protein 8.1 (6.3-8.2) g/dL Albumin 4.4 (3.5-5.0) g/dL Globulin 3.7 (1.7-4.1) g/dL Albumin/Globulin Ratio 1.2 (1.0-2.8) Urine RBC (0-5/HPF) Urine WBC (0-5/HPF) Urine Bacteria (None) Ur Culture Indicated? CSF Tube Number CSF Volume CSF Appearance (Clear) CSF Color (Colorless) CSF WBC (0-5) MONO/uL CSF RBC RBC /uL CSF Mononuclear WBCs CSF Polynuclear WBCs CSF Glucose (40-70) mg/dL CSF Total Protein (12-60) mg/dL CSF C.neoform/gat PCR (Not Detect) CSF CMV DNA (PCR) (Not Detect) CSF Enterovirus (PCR) (Not Detect) CSF E. coli (PCR) (Not Detect) CSF H. influenzae (PCR) (Not Detect) CSF HSV I (PCR) (Not Detect) CSF HSV II (PCR) (Not Detect) CSF HHV 6 (PCR) (Not Detect) CSF L.monocytogenes PCR (Not Detect) CSF N. meningitidis PCR (Not Detect) CSF Parechovirus (PCR) (Not Detect) CSF S. agalactiae (PCR) (Not Detect) CSF S. pneumoniae (PCR) (Not Detect) CSF VZV (PCR) (Not Detecte) Chlamy pneumoniae PCR Not detected (Not Detect) Adenovirus (PCR) Not detected (Not Detect) B. pertussis DNA (PCR) Not detected (Not Detecte) B.parapertussis DNA PCR Not detected (Not Detecte) Coronavirus OC43 (PCR) Not detected (Not Detect) Coronavirus HKU1 (PCR) Not detected (Not Detect) Coronavirus 229E (PCR) Not detected (Not Detect) SARS-CoV-2 (PCR) Not detected (Not Detecte) Coronavirus NL63 (PCR) Not detected (Not Detect) Human Metapneumovir PCR Not detected (Not Detect) Influenza Type A (PCR) Not detected (Not Detect) Influenza Type B (PCR) Not detected (Not Detect) M. pneumoniae (PCR) Not detected (Not Detect) Parainfluenza 1 (PCR) Not detected (Not Detect) Parainfluenza 2 (PCR) Not detected (Not Detect) Parainfluenza 3 (PCR) Not detected (Not Detect) Parainfluenza 4 (PCR) Not detected (Not Detect) RSV (PCR) Not detected (Not Detect) Entero/Rhino (PCR) Not detected (Not Detect) 07/22/21 07/22/21 07/22/21 Range/Units 03:15 03:30 03:30 WBC (4.5-11.0) X10^3/uL RBC (4.5-5.9) X10^6/uL Hgb (13.5-17.5) g/dL Hct (41-53) % MCV (80-100) fL MCH (26-34) PG MCHC (30-36) % RDW (11.6-14.8) % Plt Count (150-400) X10^3/uL Neut % (Auto) (50-75) % Lymph % (Auto) (25-40) % Leake % (Auto) (3-14) % Eos % (Auto) (2-4) % Baso % (Auto) (0-2) % Neut # (Auto) (7016-3813) /uL Lymph # (Auto) (4217-2176) /uL Leake # (Auto) (0-900) /uL Eos # (Auto) (0-450) /uL Baso # (Auto) (0-100) /uL Sodium (137-145) mmol/L Potassium (3.4-5.1) mmol/L Chloride (98-107) mmol/L Carbon Dioxide (22-32) mmol/L BUN (9-20) mg/dL Creatinine (0.66-1.25) mg/dL Estimated GFR (>60) mL/min BUN/Creatinine Ratio (6-22) Glucose (70-100) mg/dL Calcium (8.4-10.2) mg/dL Magnesium (1.6-2.3) mg/dL Total Bilirubin (0.2-1.3) mg/dL AST (17-59) IU/L ALT (<50) IU/L Alkaline Phosphatase (38-126) U/L Total Creatine Kinase (55-170) U/L CK-MB (CK-2) CK-MB (CK-2) Rel Index Troponin I (0.01-0.034) ng/mL Total Protein (6.3-8.2) g/dL Albumin (3.5-5.0) g/dL Globulin (1.7-4.1) g/dL Albumin/Globulin Ratio (1.0-2.8) Urine RBC 0-1/hpf (0-5/HPF) Urine WBC None seen (0-5/HPF) Urine Bacteria None seen (None) Ur Culture Indicated? Cult not indicated CSF Tube Number 3 CSF Volume 1.0 ml CSF Appearance Clear (Clear) CSF Color Colorless (Colorless) CSF WBC 3 (0-5) MONO/uL CSF RBC 0 RBC /uL CSF Mononuclear WBCs TNP CSF Polynuclear WBCs TNP CSF Glucose 96 H (40-70) mg/dL CSF Total Protein 293 H* (12-60) mg/dL CSF C.neoform/gat PCR Not detected (Not Detect) CSF CMV DNA (PCR) Not detected (Not Detect) CSF Enterovirus (PCR) Not detected (Not Detect) CSF E. coli (PCR) Not detected (Not Detect) CSF H. influenzae (PCR) Not detected (Not Detect) CSF HSV I (PCR) Not detected (Not Detect) CSF HSV II (PCR) Not detected (Not Detect) CSF HHV 6 (PCR) Not detected (Not Detect) CSF L.monocytogenes PCR Not detected (Not Detect) CSF N. meningitidis PCR Not detected (Not Detect) CSF Parechovirus (PCR) Not detected (Not Detect) CSF S. agalactiae (PCR) Not detected (Not Detect) CSF S. pneumoniae (PCR) Not detected (Not Detect) CSF VZV (PCR) Not detected (Not Detecte) Chlamy pneumoniae PCR (Not Detect) Adenovirus (PCR) (Not Detect) B. pertussis DNA (PCR) (Not Detecte) B.parapertussis DNA PCR (Not Detecte) Coronavirus OC43 (PCR) (Not Detect) Coronavirus HKU1 (PCR) (Not Detect) Coronavirus 229E (PCR) (Not Detect) SARS-CoV-2 (PCR) (Not Detecte) Coronavirus NL63 (PCR) (Not Detect) Human Metapneumovir PCR (Not Detect) Influenza Type A (PCR) (Not Detect) Influenza Type B (PCR) (Not Detect) M. pneumoniae (PCR) (Not Detect) Parainfluenza 1 (PCR) (Not Detect) Parainfluenza 2 (PCR) (Not Detect) Parainfluenza 3 (PCR) (Not Detect) Parainfluenza 4 (PCR) (Not Detect) RSV (PCR) (Not Detect) Entero/Rhino (PCR) (Not Detect) Urine Dip Bedside Urine Glucose Negative Bedside Urine Bilirubin - Negative Bedside Urine Ketone - Negative Urine Specific [place] 1.20 Bedside Urine Occult Blood +/- Bedside Urine pH 6.0 Bedside Urine Protein - Negative Bedside Urine Urobilinogen - Negative Bedside Urine Nitrite - Negative Bedside Urine Leukocytes - Negative Esterase Point of care testing: Urine Dip Bedside Urine Glucose Negative Bedside Urine Bilirubin - Negative Bedside Urine Ketone - Negative Urine Specific [place] 1.20 Bedside Urine Occult Blood +/- Bedside Urine pH 6.0 Bedside Urine Protein - Negative Bedside Urine Urobilinogen - Negative Bedside Urine Nitrite - Negative Bedside Urine Leukocytes - Negative Esterase Imaging Data Cervical spine MRI: Radiologist's Impression: [address] [address] Magnetic Resonance Report Signed Patient: Reece Kerr MR#: [id number] : 1965 Acct:[id number] Age/Sex: 56 / M Date of Service: 07/22/21 Loc: ED Accession Number: [id number] ?? Procedure: MR cervical spine wo/w con Ordering Provider: Prabhu Power D.O. PROCEDURE:? MR CERVICAL SPINE WO/W CON ? INDICATIONS:? ascending numbness weakness ? TECHNIQUE:? Noncontrast sagittal T1 spin echo and T2 fast spin echo, sagittal STIR, foraminal oblique sagittal T2 fast spin echo, axial gradient echo or T2 fast spin echo through the cervical spine.? After the administration of contrast, axial and sagittal T1 spin echo with fat saturation through the cervical spine.? ? COMPARISON:? [facility], CT, CT ANGIO HEAD AND NECK, 07/22/2021, 3:53.? [facility], MR, MR LUMBAR SPINE WO/W CON, 07/22/2021, 8:25.? [facility], MR, MR THORACIC SPINE WO/W CON, 07/22/2021, 8:25. ? FINDINGS:? Image quality:? Diagnostic, with note made of motion artifact.? ? Alignment and curvature:? There is normal bony alignment.? ? Marrow:? Marrow is normal in overall signal, without suspicious enhancement.? ? Spinal cord:? Visualized spinal cord has normal size and signal.? No cerebellar tonsillar herniation.? No abnormal intramedullary enhancement.? ? Paraspinous soft tissues:? No paravertebral masses or suspicious enhancement.? ? C2-3:? Normal appearance.? ? C3-4:? The disc height and disk signal are well-preserved.? Mild to moderate disc osteophyte complex is seen.? There is moderate right-sided and mild left-sided facet hypertrophy.? There is moderate right-sided and no significant left-sided neural foraminal narrowing.? No significant central canal narrowing is seen. ? C4-5:? The disc height and disk signal are well-preserved. Moderate facet joint hypertrophy is seen.? There is at least moderate right-sided and minimal left-sided neural foraminal narrowing. Mild central canal narrowing is seen.? ? C5-6:? Mild loss of disc height is seen. Loss of disc signal is seen.? Moderate disc osteophyte complex is seen, with a central disc osteophyte extrusion, with mild superior migration of the disc material.? Moderate to prominent facet hypertrophy is seen.? There is moderate to severe right-sided and minimal left-sided neural foraminal narrowing.? Moderate central canal narrowing is seen.? There is associated mass effect upon the ventral spinal cord.? ? C6-7:? Mild loss of disc height is seen. Loss of disc signal is seen.? Moderate disc osteophyte complex is seen, which is eccentric to the right.? There is a central disc osteophyte protrusion seen.? There is moderate right-sided and mild left-sided facet hypertrophy.? There is at least moderate right-sided and minimal left-sided neural foraminal narrowing. Moderate central canal narrowing is seen.? A minimal degree of mass effect can be seen upon the ventral spinal cord. ? C7-T1:? No significant abnormality is seen. ? ? ? IMPRESSION:? Cervical spine degenerative changes are seen, which are worst at C5-C6 and C6-C7.? ? No abnormal enhancement is seen. ? No findings of epidural abscess are seen.? ? Dictated by: Ivan Gutierrez M.D. on 07/22/2021 at 9:40 ? ? Approved by: Ivan Gutierrez M.D. on 07/22/2021 at 9:44?? Lumbar spine MRI: Radiologist's Impression: [address] [address] Magnetic Resonance Report Draft Patient: Reece Kerr MR#: [id number] : 1965 Acct:[id number] Age/Sex: 56 / M Date of Service: 07/22/21 Loc: ED Accession Number: [id number] ?? Procedure: MR lumbar spine wo/w con Ordering Provider: Prabhu Power D.O. Caution: Report not yet finalized and possibly incomplete! ? ? PROCEDURE:? MR LUMBAR SPINE WO/W CON ? INDICATIONS:? ascending numbness / weakness, per [facility] ? TECHNIQUE:? Noncontrast sagittal T1 spin echo and T2 fast spin echo, sagittal STIR, axial T1 and T2 fast spin echo through the lumbar spine.? In cases with scoliosis, additional coronal T2 fast spin echo may be performed.? After the administration of contrast, sagittal and axial T1 spin echo with fat saturation through the lumbar spine.? ? COMPARISON:? [facility], MR, MR THORACIC SPINE WO/W CON, 07/22/2021, 8:25.? [facility], MR, MR CERVICAL SPINE WO/W CON, 07/22/2021, 8:25. ? FINDINGS:? Image quality:? Excellent.? ? Alignment and curvature:? There is minimal retrolisthesis at L5-S1. ? Marrow:? Marrow is of normal overall signal.? No acute vertebral body compression fractures.? No suspicious marrow enhancement.? ? Spinal cord:? Conus medullaris terminates at the T12-L1 level.? Visualized spinal cord demonstrates normal signal, without suspicious enhancement.? No significant nerve root enhancement can be seen. ? Paraspinous soft tissues:? No paravertebral masses or abnormal enhancement.? ? T12-L1:? Normal appearance.? ? L1-L2:? Normal appearance.? ? L2-L3:? The disc height is well-preserved.? Loss of disc signal is seen at this level.? Mild generalized disc bulge is seen.? There is a mild central disc protrusion.? There is moderate left-sided and mild right-sided neural foraminal narrowing. Minimal central canal narrowing is seen.? ? L3-L4:? The disc height is well-preserved.? Loss of disc signal is seen at this level.? Moderate disc bulge is seen. There is a superimposed central disc protrusion. There is a focal annular fissure seen posteriorly.? ? Mild facet joint hypertrophy is seen. Moderate bilateral neural foraminal narrowing is seen.? Mild to moderate central canal narrowing is seen. ? L4-L5:? Mild loss of disc height is seen. Loss of disc signal is seen.? Mild to moderate disc bulge is seen, with a mild central disc protrusion. There is a focal annular fissure seen posteriorly.? Mild to moderate facet hypertrophy is seen.? There is moderate right-sided and at least moderate left-sided neural foraminal narrowing. Mild central canal narrowing is seen.? ? L5-S1:? Moderate loss of disc height is seen.? Loss of disc signal is seen.? Reactive marrow endplate changes are seen, which are hyperintense on T1-weighted and T2-weighted imaging and most consistent with fatty metaplasia (Modic type II changes).? Posteriorly projected endplate osteophytes are seen.? Moderate generalized disc bulge is seen. There is a superimposed central disc protrusion. ? Mild facet joint hypertrophy is seen. Moderate bilateral neural foraminal narrowing is seen.? Mild central canal narrowing is seen.? IMPRESSION:? ? No imaging explanation is found for this patient's presenting symptoms.? ? Multiple levels of degenerative change can be seen, which are overall worst at L5-S1. ? No abnormal enhancement is seen.? No findings of discitis, osteomyelitis, or epidural abscess. ? Dictated by: Ivan Gutierrez M.D. on 07/22/2021 at 9:45 ? Transcribed by: BRANDON on 07/22/2021 at 9:52?? Chest x-ray: Radiologist's Impression: [address] [address] XRay Report Signed Patient: Reece Kerr MR#: [id number] : 1965 Acct:[id number] Age/Sex: 56 / M Date of Service: 07/22/21 Loc: ED Accession Number: [id number] ?? Procedure: XR chest 1V Ordering Provider: Prabhu Power D.O. PROCEDURE:? XR CHEST 1V ? INDICATIONS:? bodyaches, cough ? TECHNIQUE:? One view of the chest was acquired.? ? COMPARISON:? [facility], , XR CHEST 1V, 04/19/2021, 11:14. ? FINDINGS:? ? Surgical changes and devices:? None.? ? Lungs and pleura:? An incomplete inspiratory result is noted, causing a crowded appearance to the lung markings.? Mild, streaky opacities are seen at the lung bases.? No pneumothorax or significant pleural effusions are seen. ? ? Mediastinum:? Mediastinal contours appear normal.? Heart size is normal.? ? Bones and chest wall:? No suspicious bony lesions.? Overlying soft tissues appear unremarkable.? ? ? IMPRESSION:? Low lung volumes.? ? Presumed atelectasis is seen at the lung bases.? Differential diagnosis includes minimal/early infiltrate, yet this is considered to be less likely. ? If there is clinical concern for a developing pulmonary process, a short-term followup chest series (with PA and lateral views, performed in deep inspiration) is suggested for further evaluation. ? Note: No significant discrepancy from the preliminary report. ? Dictated by: Ivan Gutierrez M.D. on 07/22/2021 at 8:23 ? ? Approved by: Ivan Gutierrez M.D. on 07/22/2021 at 8:24?? CT scan - head: Radiologist's Impression: [address] [address] [address] Scan Report Signed Patient: Reece Kerr MR#: [id number] : 1965 Acct:[id number] Age/Sex: 56 / M Date of Service: 07/22/21 Loc: ED Accession Number: [id number] ?? Procedure: CT head/brain wo con Ordering Provider: Prabhu Power D.O. PROCEDURE:? CT HEAD/BRAIN WO CON ? INDICATIONS:? HTN, on thinners, extremity tingling and weakness ? TECHNIQUE:? Noncontrast 4.5 mm thick angled axial sections acquired from the foramen magnum to the vertex, with coronal and sagittal reformats.? For radiation dose reduction, the following was used:? automated exposure control, adjustment of mA and/or kV according to patient size.? ? COMPARISON:? [facility], CT, CT ANGIO HEAD AND NECK, 07/22/2021, 3:53. ? FINDINGS:? Image quality:? Excellent.? ? CSF spaces:? Basal cisterns are patent.? No extra-axial fluid collections.? Ventricles are normal in size and shape.? ? Brain:? No midline shift.? No intracranial masses or hemorrhage.? Piña-white matter interface is normal.? The basilar artery appears mildly hyperdense, as on series 2, image 7. ? Skull and face:? Calvarium and visualized facial bones are intact, without suspicious lesions.? ? Sinuses:? Moderate mucosal thickening is seen within the maxillary sinuses, with ciby-ed-dgfsoxpj mucosal thickening within the ethmoid air cells and the sphenoid sinuses. No abnormal fluid is seen within the mastoid air cells. ? ? IMPRESSION:? No acute intracranial hemorrhage is seen.? ? Mildly hyperdense basilar artery noted. ? Paranasal sinus disease noted. ? ? Note: No significant discrepancy from the preliminary report. ? ? Dictated by: Ivan Gutierrez M.D. on 07/22/2021 at 8:24 ? ? Approved by: Ivan Gutierrez M.D. on 07/22/2021 at 8:26?? CTA brain/neck: Radiologist's Impression: [place] [address] CT Scan Report Signed Patient: Reece Kerr MR#: [id number] : 1965 Acct:[id number] Age/Sex: 56 / M Date of Service: 07/22/21 Loc: ED Accession Number: [id number] ?? Procedure: CT angio head and neck Ordering Provider: Prabhu Power D.O. PROCEDURE:? CT ANGIO HEAD AND NECK ? INDICATIONS:? Headache, tingling feet, dense basilar artery on head CT ? TECHNIQUE:? Noncontrast images were performed earlier in the day and not repeated.? ? After the administration of intravenous contrast, 1 mm thick sections acquired from the aortic arch through the [place].? Post-contrast 4.5 mm thick sections then re-acquired from the foramen magnum to the vertex.? 3-dimensional gxcxxiv-xgicvwmkv-xtqdnkvggq (MIP) and/or volume rendering reformats were acquired of the central intracranial vasculature and neck separately. For radiation dose reduction, the following was used:? automated exposure control, adjustment of mA and/or kV according to patient size.? ? COMPARISON:? [facility], CT, CT HEAD/BRAIN WO CON, 07/22/2021, 2:11.? [facility], CR, XR CHEST 1V, 07/22/2021, 2:02. ? FINDINGS:? Image quality:? Excellent.? ? BRAIN:? CSF spaces:? Ventricles are normal in size and shape.? Basal cisterns are patent.? No extra-axial fluid collections.? ? Brain:? No midline shift.? No intracranial bleeds or masses.? Piña-white matter interface appears intact.? ? Skull and face:? Calvarium and facial bones appear intact, without suspicious lesions.? Orbits appear normal.? ? Sinuses:? Moderate mucosal thickening seen within the maxillary sinuses, with mild to moderate mucosal thickening within the ethmoid air cells and within the sphenoid sinuses. No abnormal fluid is seen within the mastoid air cells. ? ? HEAD CT ANGIOGRAPHY:? Anterior circulation:? Intracranial internal carotid arteries are normal in size and flow.? The flow within the paired anterior cerebral arteries is normal and symmetric.? The flow within the middle cerebral arteries is normal and symmetric.? The anterior communicating artery is seen.? No aneurysms are seen.? ? Posterior circulation:? Visualized portions of the vertebral arteries demonstrate normal caliber, and join to form a normal appearing basilar artery.? Flow within the posterior cerebral arteries is normal and symmetric.? No aneurysms are seen.? ? NECK CT ANGIOGRAPHY:? Carotid system:? The great vessels demonstrate a conventional anatomy as they arise from the aortic arch.? The origins of the common carotid arteries appear patent.? The common carotid arteries demonstrate normal caliber and courses.? The bifurcation regions are both widely patent.? The internal carotid arteries demonstrate normal calibers and courses.? ? Posterior circulation:? The origins of the vertebral arteries both appear widely patent.? The more superior extracranial portions of both vertebral arteries also demonstrate normal courses and calibers.? They join to form a normal appearing basilar artery.? ? Soft tissues:? Visualized neck soft tissues demonstrate no suspicious abnormalities.? ? Bones:? No suspicious bony lesions.? Visualized cervical spine appears normally aligned.? Tqir-ig-iatmzldo lower cervical spine degenerative change can be seen. ? ? IMPRESSION:? No significant intracranial arterial abnormality is seen.? Specifically, the basilar artery demonstrates a normal appearance. ? Within the arteries of the neck, no hemodynamically significant stenosis can be seen. ? ? No masses or abnormal enhancement can be seen.? ? Paranasal sinus disease seen. ? ? Note: No significant discrepancy from the preliminary report. ? Any quantitative measurements of stenosis were performed using NASCET criteria.? ? ? Dictated by: Ivan Gutierrez M.D. on 07/22/2021 at 8:27 ? ? Approved by: Ivan Gutierrez M.D. on 07/22/2021 at 8:30?? Thoracic spine MRI: Radiologist's Impression: [address] [address] Magnetic Resonance Report Signed Patient: Reece Kerr MR#: [id number] : 1965 Acct:[id number] Age/Sex: 56 / M Date of Service: 07/22/21 Loc: ED Accession Number: [id number] ?? Procedure: MR thoracic spine wo/w con Ordering Provider: Prabhu Power D.O. PROCEDURE:? MR THORACIC SPINE WO/W CON ? INDICATIONS:? ascending numbness / weakness, request per [facility] ? TECHNIQUE:? Noncontrast sagittal T1 spin echo and T2 fast spin echo, sagittal STIR, axial T1 and T2 fast spin echo through the thoracic spine.? After the administration of contrast, axial and sagittal T1 spin echo with fat saturation through the thoracic spine.? ? COMPARISON:? [facility], MR, MR LUMBAR SPINE WO/W CON, 07/22/2021, 8:25.? [facility], MR, MR CERVICAL SPINE WO/W CON, 07/22/2021, 8:25.? [facility], CR, XR CHEST 1V, 07/22/2021, 2:02. ? FINDINGS:? Image quality:? Excellent.? ? Alignment and curvature:? Accentuated thoracic kyphosis is seen. No focal AP alignment abnormality is seen. ? ? Marrow:? Marrow is of normal overall signal. Scattered foci are seen, which are hyperintense on T1-weighted and T2-weighted imaging, which are most consistent with benign vertebral body hemangiomas.? No acute vertebral body compression fractures. ? Spinal cord:? Visualized spinal cord is of normal signal and size, without abnormal enhancement.? ? Paraspinous soft tissues:? No paravertebral masses or abnormal enhancement.? ? Miscellaneous:? Lower cervical spine degenerative changes are seen. ? At T5-T6, there is a mild central/left disc protrusion, mild central canal narrowing and minimal mass effect upon the ventral spinal cord. ? At T6-T7, there is a mild central disc osteophyte protrusion, without significant central canal or neural foraminal narrowing. ? At the T7-T8 level, there is a focal central/left disc protrusion, with mild central canal narrowing and mild mass effect upon the ventral spinal cord. ? Milder degenerative changes are seen elsewhere.? IMPRESSION:? No abnormal enhancement is seen.? No findings of epidural abscess are seen. ? Negative for discitis or osteomyelitis. ? Multiple levels of degenerative change are seen, which are overall worst at the T7-T8 level.? ? Dictated by: Ivan Gutierrez M.D. on 07/22/2021 at 9:52 ? ? Approved by: Ivan Gutierrez M.D. on 07/22/2021 at 9:55 MDM Narrative Medical decision making narrative: Dr martino: Received turned over. The patient's history and physical exam. MRI of his cervical thoracic and lumbar spine are unremarkable. We do not have IV IG available here at this facility. Dr. Power who initially saw the patient has talked with specialist at [facility] and also hospitalist at [facility] who accepts the patient in transfer. I did discuss the findings of the MRI with the patient. Patient is stable for transport. Critical Care Time <Prabhu Power DO - Last Filed: 07/22/21 23:06> Critical Care Time Critical Care Time: Yes Total Critical Care Time: 60 Attestation: The high probability of a clinically significant, sudden or life threatening deterioration of the [Neuro] system(s) required my full and direct attention, intervention and personal management. The aggregate critical care time was [60] minutes. 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
--- NOTE | 2021-07-22 01:59 | DI.RAD.S_ITS ---
PROCEDURE: XR CHEST 1V INDICATIONS: bodyaches, cough TECHNIQUE: One view of the chest was acquired. COMPARISON: [facility], CR, XR CHEST 1V, 04/19/2021, 11:14. FINDINGS: Surgical changes and devices: None. Lungs and pleura: An incomplete inspiratory result is noted, causing a crowded appearance to the lung markings. Mild, streaky opacities are seen at the lung bases. No pneumothorax or significant pleural effusions are seen. Mediastinum: Mediastinal contours appear normal. Heart size is normal. Bones and chest wall: No suspicious bony lesions. Overlying soft tissues appear unremarkable. IMPRESSION: Low lung volumes. Presumed atelectasis is seen at the lung bases. Differential diagnosis includes minimal/early infiltrate, yet this is considered to be less likely. If there is clinical concern for a developing pulmonary process, a short-term followup chest series (with PA and lateral views, performed in deep inspiration) is suggested for further evaluation. Note: No significant discrepancy from the preliminary report. Dictated by: Ivan Gutierrez M.D. on 07/22/2021 at 8:23 Approved by: Ivan Gutierrez M.D. on 07/22/2021 at 8:24
--- NOTE | 2021-07-22 02:01 | DI.CT.S_ITS ---
PROCEDURE: CT HEAD/BRAIN WO CON INDICATIONS: HTN, on thinners, extremity tingling and weakness TECHNIQUE: Noncontrast 4.5 mm thick angled axial sections acquired from the foramen magnum to the vertex, with coronal and sagittal reformats. For radiation dose reduction, the following was used: automated exposure control, adjustment of mA and/or kV according to patient size. COMPARISON: [facility], CT, CT ANGIO HEAD AND NECK, 07/22/2021, 3:53. FINDINGS: Image quality: Excellent. CSF spaces: Basal cisterns are patent. No extra-axial fluid collections. Ventricles are normal in size and shape. Brain: No midline shift. No intracranial masses or hemorrhage. Piña-white matter interface is normal. The basilar artery appears mildly hyperdense, as on series 2, image 7. Skull and face: Calvarium and visualized facial bones are intact, without suspicious lesions. Sinuses: Moderate mucosal thickening is seen within the maxillary sinuses, with pegj-pg-mwxzfzbx mucosal thickening within the ethmoid air cells and the sphenoid sinuses. No abnormal fluid is seen within the mastoid air cells. IMPRESSION: No acute intracranial hemorrhage is seen. Mildly hyperdense basilar artery noted. Paranasal sinus disease noted. Note: No significant discrepancy from the preliminary report. Dictated by: Ivan Gutierrez M.D. on 07/22/2021 at 8:24 Approved by: Ivan Gutierrez M.D. on 07/22/2021 at 8:26
[2021-07-22 02:23] LABS: Add Manual Diff / Slide Review NO; Basophils Absolute Auto 100 /uL (0-100); Basophils Percent Auto 1.3 % (0-2); Eosinophils Absolute Auto 200 /uL (0-450); Eosinophils Percent Auto 1.8 % (2-4); Hemoglobin 15.1 g/dL (13.5-17.5); Lymphocytes Absolute Auto 1800 /uL (1100-4500); Mean Corpuscular HGB Conc 34.3 % (30-36); Mean Corpuscular Hemoglobin 29.8 PG (26-34); Mean Corpuscular Volume 87.1 fL (80-100); Monocytes Absolute Auto 600 /uL (0-900); Monocytes Percent Auto 7.1 % (3-14); Neutrophils Absolute Auto 6000 /uL (1500-7000); Neutrophils Percent Auto 68.8 % (50-75); Platelet Count 321 X10^3/uL (150-400); Red Blood Cell Count 5.05 X10^6/uL (4.5-5.9); Red Cell Distribution Width 13.3 % (11.6-14.8); White Blood Cell Count 8.7 X10^3/uL (4.5-11.0)
[2021-07-22 02:32] LABS: Alanine Aminotransferase 29 IU/L (<50); Albumin 4.4 g/dL (3.5-5.0); Albumin Globulin Ratio 1.2 (1.0-2.8); Alkaline Phosphatase 65 U/L (38-126); Aspartate Aminotransferase 23 IU/L (17-59); Bilirubin Total 0.4 mg/dL (0.2-1.3); Blood Urea Nitrogen 15 mg/dL (9-20); Calcium 9.2 mg/dL (8.4-10.2); Carbon Dioxide 28 mmol/L (22-32); Chloride 103 mmol/L (98-107); Creatine Kinase 47 U/L (55-170); Estimated Glomerular Filt Rate > 60 mL/min (>60); Globulin 3.7 g/dL (1.7-4.1); Glucose 182 mg/dL (70-100); HEMOLYSIS < 15 (0-50); Magnesium 2.2 mg/dL (1.6-2.3); Potassium 3.7 mmol/L (3.4-5.1); Sodium 141 mmol/L (137-145); Total Protein 8.1 g/dL (6.3-8.2)
[2021-07-22 02:43] LABS: Troponin I < 0.012 ng/mL (0.01-0.034)
[2021-07-22 03:27] LABS: Adenovirus Not Detected (Not Detect); B. parapertussis Not Detected (Not Detecte); Bordetella pertussis Not Detected (Not Detecte); Chlamydophila pneumoniae Not Detected (Not Detect); Coronavirus 229E Not Detected (Not Detect); Coronavirus HKU1 Not Detected (Not Detect); Coronavirus NL 63 Not Detected (Not Detect); Coronavirus OC43 Not Detected (Not Detect); Human Metapneumovirus Not Detected (Not Detect); Human Rhinovirus/Enterovirus Not Detected (Not Detect); Influenza A Not Detected (Not Detect); Influenza B Not Detected (Not Detect); Mycoplasma pneumoniae Not Detected (Not Detect); Parainfluenza Virus 1 Not Detected (Not Detect); Parainfluenza Virus 2 Not Detected (Not Detect); Parainfluenza Virus 3 Not Detected (Not Detect); Parainfluenza Virus 4 Not Detected (Not Detect); Respiratory Syncytial Virus Not Detected (Not Detect); SARS- CoV-2 Not Detected (Not Detecte)
[2021-07-22 03:32] LABS: RBC Urine 0-1/HPF (0-5/HPF); WBC Urine None Seen (0-5/HPF)
[2021-07-22 03:33] LABS: Bacteria Urine None Seen; Culture Indicated Urine Cult Not Indicated
--- NOTE | 2021-07-22 03:46 | DI.CT.S_ITS ---
PROCEDURE: CT ANGIO HEAD AND NECK INDICATIONS: Headache, tingling feet, dense basilar artery on head CT TECHNIQUE: Noncontrast images were performed earlier in the day and not repeated. After the administration of intravenous contrast, 1 mm thick sections acquired from the aortic arch through the [place] of [place]. Post-contrast 4.5 mm thick sections then re-acquired from the foramen magnum to the vertex. 3-dimensional qlsbglx-vbfbiyxdi-ptypxyizvc (MIP) and/or volume rendering reformats were acquired of the central intracranial vasculature and neck separately. For radiation dose reduction, the following was used: automated exposure control, adjustment of mA and/or kV according to patient size. COMPARISON: [facility], CT, CT HEAD/BRAIN WO CON, 07/22/2021, 2:11. [facility], CR, XR CHEST 1V, 07/22/2021, 2:02. FINDINGS: Image quality: Excellent. BRAIN: CSF spaces: Ventricles are normal in size and shape. Basal cisterns are patent. No extra-axial fluid collections. Brain: No midline shift. No intracranial bleeds or masses. Piña-white matter interface appears intact. Skull and face: Calvarium and facial bones appear intact, without suspicious lesions. Orbits appear normal. Sinuses: Moderate mucosal thickening seen within the maxillary sinuses, with mild to moderate mucosal thickening within the ethmoid air cells and within the sphenoid sinuses. No abnormal fluid is seen within the mastoid air cells. HEAD CT ANGIOGRAPHY: Anterior circulation: Intracranial internal carotid arteries are normal in size and flow. The flow within the paired anterior cerebral arteries is normal and symmetric. The flow within the middle cerebral arteries is normal and symmetric. The anterior communicating artery is seen. No aneurysms are seen. Posterior circulation: Visualized portions of the vertebral arteries demonstrate normal caliber, and join to form a normal appearing basilar artery. Flow within the posterior cerebral arteries is normal and symmetric. No aneurysms are seen. NECK CT ANGIOGRAPHY: Carotid system: The great vessels demonstrate a conventional anatomy as they arise from the aortic arch. The origins of the common carotid arteries appear patent. The common carotid arteries demonstrate normal caliber and courses. The bifurcation regions are both widely patent. The internal carotid arteries demonstrate normal calibers and courses. Posterior circulation: The origins of the vertebral arteries both appear widely patent. The more superior extracranial portions of both vertebral arteries also demonstrate normal courses and calibers. They join to form a normal appearing basilar artery. Soft tissues: Visualized neck soft tissues demonstrate no suspicious abnormalities. Bones: No suspicious bony lesions. Visualized cervical spine appears normally aligned. Gjir-ir-xyvocolr lower cervical spine degenerative change can be seen. IMPRESSION: No significant intracranial arterial abnormality is seen. Specifically, the basilar artery demonstrates a normal appearance. Within the arteries of the neck, no hemodynamically significant stenosis can be seen. No masses or abnormal enhancement can be seen. Paranasal sinus disease seen. Note: No significant discrepancy from the preliminary report. Any quantitative measurements of stenosis were performed using NASCET criteria. Dictated by: Ivan Gutierrez M.D. on 07/22/2021 at 8:27 Approved by: Ivan Gutierrez M.D. on 07/22/2021 at 8:30
[2021-07-22 03:58] LABS: Glucose CSF 96 mg/dL (40-70)
[2021-07-22] MEDS: METOCLOPRAMIDE 10 MG/2 ML INJ IV (04:02)
[2021-07-22] MEDS: SODIUM CHLORIDE 0.9% 1,000 ML 1000 ML IV (04:03)
[2021-07-22] MEDS: KETOROLAC 30 MG/ML VIAL 15 MG IV (04:03)
[2021-07-22 04:20] LABS: Total Protein CSF 293 mg/dL (12-60)
[2021-07-22 04:27] LABS: Appearance CSF Clear (Clear); CSF Tube Number 3; CSF Tube Volume 1.0 mL; Color CSF Colorless (Colorless)
[2021-07-22 04:28] LABS: Red Blood Cell CSF 0 RBC /uL
[2021-07-22 04:29] LABS: White Blood Cell CSF 3 MONO/uL (0-5)
[2021-07-22 05:12] LABS: Cryptococcus neoformans/gattii Not Detected (Not Detect); Enterovirus Not Detected (Not Detect); Escherichia coli K1 Not Detected (Not Detect); Haemophilus influenzae Not Detected (Not Detect); Herpes simplex virus 1 Not Detected (Not Detect); Herpes simplex virus 2 Not Detected (Not Detect); Human herpesvirus 6 Not Detected (Not Detect); Human parechovirus Not Detected (Not Detect); Listeria monocytogenes Not Detected (Not Detect); Neisseria meningitidis Not Detected (Not Detect); Streptococcus agalactiae Not Detected (Not Detect); Streptococcus pneumoniae Not Detected (Not Detect); Varicella Zoster Virus Not Detected (Not Detecte)
[2021-07-22] MEDS: ACETAMINOPHEN 325 MG TABLET 975 MG PO ×2 (05:44→10:45)
--- NOTE | 2021-07-22 05:44 | DI.MRI.S_ITS ---
PROCEDURE: MR THORACIC SPINE WO/W CON INDICATIONS: ascending numbness / weakness, request per [employer] TECHNIQUE: Noncontrast sagittal T1 spin echo and T2 fast spin echo, sagittal STIR, axial T1 and T2 fast spin echo through the thoracic spine. After the administration of contrast, axial and sagittal T1 spin echo with fat saturation through the thoracic spine. COMPARISON: [facility], MR, MR LUMBAR SPINE WO/W CON, 07/22/2021, 8:25. [facility], MR, MR CERVICAL SPINE WO/W CON, 07/22/2021, 8:25. [facility], CR, XR CHEST 1V, 07/22/2021, 2:02. FINDINGS: Image quality: Excellent. Alignment and curvature: Accentuated thoracic kyphosis is seen. No focal AP alignment abnormality is seen. Marrow: Marrow is of normal overall signal. Scattered foci are seen, which are hyperintense on T1-weighted and T2-weighted imaging, which are most consistent with benign vertebral body hemangiomas. No acute vertebral body compression fractures. Spinal cord: Visualized spinal cord is of normal signal and size, without abnormal enhancement. Paraspinous soft tissues: No paravertebral masses or abnormal enhancement. Miscellaneous: Lower cervical spine degenerative changes are seen. At T5-T6, there is a mild central/left disc protrusion, mild central canal narrowing and minimal mass effect upon the ventral spinal cord. At T6-T7, there is a mild central disc osteophyte protrusion, without significant central canal or neural foraminal narrowing. At the T7-T8 level, there is a focal central/left disc protrusion, with mild central canal narrowing and mild mass effect upon the ventral spinal cord. Milder degenerative changes are seen elsewhere. IMPRESSION: No abnormal enhancement is seen. No findings of epidural abscess are seen. Negative for discitis or osteomyelitis. Multiple levels of degenerative change are seen, which are overall worst at the T7-T8 level. Dictated by: Ivan Gutierrez M.D. on 07/22/2021 at 9:52 Approved by: Ivan Gutierrez M.D. on 07/22/2021 at 9:55
--- NOTE | 2021-07-22 05:44 | DI.MRI.S_ITS ---
PROCEDURE: MR CERVICAL SPINE WO/W CON INDICATIONS: ascending numbness weakness TECHNIQUE: Noncontrast sagittal T1 spin echo and T2 fast spin echo, sagittal STIR, foraminal oblique sagittal T2 fast spin echo, axial gradient echo or T2 fast spin echo through the cervical spine. After the administration of contrast, axial and sagittal T1 spin echo with fat saturation through the cervical spine. COMPARISON: [facility], CT, CT ANGIO HEAD AND NECK, 07/22/2021, 3:53. [facility], MR, MR LUMBAR SPINE WO/W CON, 07/22/2021, 8:25. [facility], MR, MR THORACIC SPINE WO/W CON, 07/22/2021, 8:25. FINDINGS: Image quality: Diagnostic, with note made of motion artifact. Alignment and curvature: There is normal bony alignment. Marrow: Marrow is normal in overall signal, without suspicious enhancement. Spinal cord: Visualized spinal cord has normal size and signal. No cerebellar tonsillar herniation. No abnormal intramedullary enhancement. Paraspinous soft tissues: No paravertebral masses or suspicious enhancement. C2-3: Normal appearance. C3-4: The disc height and disk signal are well-preserved. Mild to moderate disc osteophyte complex is seen. There is moderate right-sided and mild left-sided facet hypertrophy. There is moderate right-sided and no significant left-sided neural foraminal narrowing. No significant central canal narrowing is seen. C4-5: The disc height and disk signal are well-preserved. Moderate facet joint hypertrophy is seen. There is at least moderate right-sided and minimal left-sided neural foraminal narrowing. Mild central canal narrowing is seen. C5-6: Mild loss of disc height is seen. Loss of disc signal is seen. Moderate disc osteophyte complex is seen, with a central disc osteophyte extrusion, with mild superior migration of the disc material. Moderate to prominent facet hypertrophy is seen. There is moderate to severe right-sided and minimal left-sided neural foraminal narrowing. Moderate central canal narrowing is seen. There is associated mass effect upon the ventral spinal cord. C6-7: Mild loss of disc height is seen. Loss of disc signal is seen. Moderate disc osteophyte complex is seen, which is eccentric to the right. There is a central disc osteophyte protrusion seen. There is moderate right-sided and mild left-sided facet hypertrophy. There is at least moderate right-sided and minimal left-sided neural foraminal narrowing. Moderate central canal narrowing is seen. A minimal degree of mass effect can be seen upon the ventral spinal cord. C7-T1: No significant abnormality is seen. IMPRESSION: Cervical spine degenerative changes are seen, which are worst at C5-C6 and C6-C7. No abnormal enhancement is seen. No findings of epidural abscess are seen. Dictated by: Ivan Gutierrez M.D. on 07/22/2021 at 9:40 Approved by: Ivan Gutierrez M.D. on 07/22/2021 at 9:44
--- NOTE | 2021-07-22 05:44 | DI.MRI.S_ITS ---
PROCEDURE: MR LUMBAR SPINE WO/W CON INDICATIONS: ascending numbness / weakness, per [place] [employer] TECHNIQUE: Noncontrast sagittal T1 spin echo and T2 fast spin echo, sagittal STIR, axial T1 and T2 fast spin echo through the lumbar spine. In cases with scoliosis, additional coronal T2 fast spin echo may be performed. After the administration of contrast, sagittal and axial T1 spin echo with fat saturation through the lumbar spine. COMPARISON: [facility], MR, MR THORACIC SPINE WO/W CON, 07/22/2021, 8:25. [facility], MR, MR CERVICAL SPINE WO/W CON, 07/22/2021, 8:25. FINDINGS: Image quality: Excellent. Alignment and curvature: There is minimal retrolisthesis at L5-S1. Marrow: Marrow is of normal overall signal. No acute vertebral body compression fractures. No suspicious marrow enhancement. Spinal cord: Conus medullaris terminates at the T12-L1 level. Visualized spinal cord demonstrates normal signal, without suspicious enhancement. Mild generalized enhancement can be seen surrounding the conus medullaris (series 10, image 9) and the distal nerve roots (series 11, image 25). The degree of enhancement is not striking and relatively mild. Paraspinous soft tissues: No paravertebral masses or abnormal enhancement. T12-L1: Normal appearance. L1-L2: Normal appearance. L2-L3: The disc height is well-preserved. Loss of disc signal is seen at this level. Mild generalized disc bulge is seen. There is a mild central disc protrusion. There is moderate left-sided and mild right-sided neural foraminal narrowing. Minimal central canal narrowing is seen. L3-L4: The disc height is well-preserved. Loss of disc signal is seen at this level. Moderate disc bulge is seen. There is a superimposed central disc protrusion. There is a focal annular fissure seen posteriorly. Mild facet joint hypertrophy is seen. Moderate bilateral neural foraminal narrowing is seen. Mild to moderate central canal narrowing is seen. L4-L5: Mild loss of disc height is seen. Loss of disc signal is seen. Mild to moderate disc bulge is seen, with a mild central disc protrusion. There is a focal annular fissure seen posteriorly. Mild to moderate facet hypertrophy is seen. There is moderate right-sided and at least moderate left-sided neural foraminal narrowing. Mild central canal narrowing is seen. L5-S1: Moderate loss of disc height is seen. Loss of disc signal is seen. Reactive marrow endplate changes are seen, which are hyperintense on T1-weighted and T2-weighted imaging and most consistent with fatty metaplasia (Modic type II changes). Posteriorly projected endplate osteophytes are seen. Moderate generalized disc bulge is seen. There is a superimposed central disc protrusion. Mild facet joint hypertrophy is seen. Moderate bilateral neural foraminal narrowing is seen. Mild central canal narrowing is seen. IMPRESSION: A mild degree of enhancement can be seen surrounding the conus medullaris and the distal nerve roots. The degree of enhancement is mild and is a nonspecific finding. 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 Multiple levels of degenerative change can be seen, which are overall worst at L5-S1. No abnormal enhancement is seen. No findings of discitis, osteomyelitis, or epidural abscess. Dictated by: Ivan Gutierrez M.D. on 07/22/2021 at 9:45 Transcribed by: BRANDON on 07/22/2021 at 9:52 Approved by: Ivan Gutierrez M.D. on 07/22/2021 at 9:59
--- NOTE | 2021-07-22 11:15 | PC.NURSE ---
IVIG medication is not available per the pharmacist. [facility] spoke to pharmacist this morning, pharm states accommodation could be made if necessary, possibly borrow med from another facility. Physician aware and will advise.
--- NOTE | 2021-07-22 14:07 | PC.NURSE ---
Nurse to nurse given to Porsche RN @ [facility]. Pt departed [facility] @ [phone]
== END 2021-07-22 14:11 | disposition short-term general hospital (02) ==
PROVIDERS: Emergency Medicine; Emergency Provider Emergency Medicine; PCP Family Medicine
DX: G61.0 Guillain-Barre syndrome (principal); Z79.01 Long term (current) use of anticoagulants; Z87.891 Personal history of nicotine dependence
CPT/HCPCS: 36415; 62270; 70450; 70496; 70498; 71045; 72156; 72157; 72158; 80053; 81003; 81015; 82550; 82945; 83735; 84157; 84484; 85025; 87070; 87205; 87633; 87798; 89051; 96361; 96374; 96375; 99284; 99291; J1885; J2765; Q9967

== ENCOUNTER → 2021-09-28 08:16 | Outpatient (CLI) | payer OTHER, SELFPAY ==
[2021-07-17 08:55] VITALS: BMI 40.5
[2021-09-28 09:30] LABS: Creatinine Urine Random 226.4 mg/dL
[2021-09-28 09:33] LABS: Hemoglobin A1C% w Est Avg Glu 5.1 % (4.0-6.0)
[2021-09-28 09:35] LABS: Microalbumi Creatinin Ratio Ur 12.8 ug/mg CR (<30); Microalbumin Urine Random 2.9 mg/dL (0-1.6)
[2021-09-28 09:36] LABS: Cholesterol 162 mg/dL (140-199); HDL Cholesterol 36 mg/dL (40-60); LDL Cholesterol Calculated 101 mg/dL (<100); Triglycerides 123 mg/dL (35-150)
== END ==
PROVIDERS: PCP Family Medicine; Referring Provider Family Medicine; Visit Provider Family Medicine
DX: E66.01 Morbid (severe) obesity due to excess calories (principal); I10 Essential (primary) hypertension; R73.9 Hyperglycemia, unspecified; Z68.41 Body mass index [BMI] 40.0-44.9, adult
CPT/HCPCS: 36415; 80061; 82043; 82570; 83036

== ENCOUNTER → 2023-05-15 07:49 | Outpatient (CLI) | payer OTHER, SELFPAY ==
[2021-07-17 08:55] VITALS: BMI 40.5
== END ==
LOC: CAR 07:50
PROVIDERS: PCP Family Medicine; Referring Provider Family Medicine; Visit Provider Family Medicine
DX: R00.2 Palpitations (principal)
CPT/HCPCS: 93246

== ENCOUNTER → 2023-07-04 07:01 | Outpatient (CLI) | payer OTHER, SELFPAY ==
[2021-07-17 08:55] VITALS: BMI 40.5
[2023-07-04 08:13] LABS: Add Manual Diff / Slide Review NO; Basophils Absolute Auto 0 /uL (0-100); Basophils Percent Auto 0.9 % (0-2); Eosinophils Absolute Auto 100 /uL (0-450); Eosinophils Percent Auto 2.2 % (2-4); Hematocrit 41.2 % (41-53); Hemoglobin 14.3 g/dL (13.5-17.5); Lymphocytes Absolute Auto 1500 /uL (1100-4500); Mean Corpuscular HGB Conc 34.7 % (30-36); Mean Corpuscular Volume 89.3 fL (80-100); Monocytes Absolute Auto 400 /uL (0-900); Monocytes Percent Auto 8.2 % (3-14); Neutrophils Absolute Auto 2500 /uL (1500-7000); Neutrophils Percent Auto 55.7 % (50-75); Platelet Count 236 X10^3/uL (150-400); Red Blood Cell Count 4.61 X10^6/uL (4.5-5.9); Red Cell Distribution Width 13.6 % (11.6-14.8); White Blood Cell Count 4.5 X10^3/uL (4.5-11.0)
[2023-07-04 08:32] LABS: Alanine Aminotransferase 52 IU/L (<50); Albumin 4.1 g/dL (3.5-5.0); Albumin Globulin Ratio 1.2 (1.0-2.8); Alkaline Phosphatase 64 U/L (38-126); Aspartate Aminotransferase 36 IU/L (17-59); Bilirubin Total 0.5 mg/dL (0.2-1.3); Blood Urea Nitrogen 17 mg/dL (9-20); Calcium 9.5 mg/dL (8.4-10.2); Carbon Dioxide 26 mmol/L (22-32); Chloride 105 mmol/L (98-107); Cholesterol 168 mg/dL (140-199); Estimated Glomerular Filt Rate > 60 mL/min (>60); Globulin 3.4 g/dL (1.7-4.1); Glucose 184 mg/dL (70-100); HDL Cholesterol 32 mg/dL (40-60); HEMOLYSIS < 15 (0-50); LDL Cholesterol Calculated 95 mg/dL (<100); Potassium 4.4 mmol/L (3.4-5.1); Sodium 138 mmol/L (137-145); Total Protein 7.5 g/dL (6.3-8.2); Triglycerides 207 mg/dL (35-150); Uric Acid 9.1 mg/dL (3.5-8.5)
[2023-07-04 08:33] LABS: Creatinine Urine Random 180.6 mg/dL
[2023-07-04 08:36] LABS: Microalbumi Creatinin Ratio Ur 29.3 ug/mg CR (<30); Microalbumin Urine Random 5.3 mg/dL (0-1.6)
[2023-07-04 09:00] LABS: Prostate Specific Antigen Scrn 0.369 ng/mL (0.1-4.0); TSH w/ Reflex to FT4 1.53 uIU/mL (0.47-4.68)
[2023-07-04 09:25] LABS: Hep C Virus Ab w/Reflex Quant NEGATIVE s/c (NEGATIVE)
[2023-07-04 10:40] LABS: Hemoglobin A1C% w Est Avg Glu 9.5 % (4.0-6.0)
[2023-07-05 05:47] LABS: Apolipoprotein B 98 mg/dL (<90)
== END ==
LOC: LAB 07:01
PROVIDERS: PCP Family Medicine; Referring Provider Family Medicine; Visit Provider Family Medicine
DX: Z12.5 Encounter for screening for malignant neoplasm of prostate (principal); I10 Essential (primary) hypertension; I48.92 Unspecified atrial flutter; G47.33 Obstructive sleep apnea (adult) (pediatric); E66.01 Morbid (severe) obesity due to excess calories; R73.9 Hyperglycemia, unspecified; Z68.41 Body mass index [BMI] 40.0-44.9, adult
CPT/HCPCS: 36415; 80053; 80061; 82043; 82172; 82570; 83036; 84443; 84550; 85025; 86803; G0103

== ENCOUNTER → 2023-08-14 12:52 | Outpatient (CLI) | payer OTHER, SELFPAY ==
[2021-07-17 08:55] VITALS: BMI 40.5
--- NOTE | 2023-09-03 14:15 | DIAB.MNT ---
Initial Diabetes Medical Nutrition Therapy Assessment Name: Reece Kerr Date: 08/14/23 Time: 1-2p Dx: Type II Diabetes Carlos Enrique presents for initial Dm visit. Newly dx with T2DM. Just back from vacation from [place] before last hgA1c, 5 days with reported over consumption. Stopped eating sugar, bread, ETOH Lost over 30# with diet changes. Doing a lot of research online about Dm. [place] lifestyle makes a big difference and seeing the difference. Low red meat Choosing leaner versions of meat: venison and elk Lots of veggies Eggs. Lots of fish, poultry. Unsure about FH of Dm, possibly mother. Diet Recall: 9a: berries 1/4 c with 1.5c oatmeal and nuts OR pb celery OR unsalted nuts 12p: leftovers; veg and chx OR chx salad wrap with low CHO wrap and apple 5-6p: veg, fish or burger or steak and no CHO ir 1.2-1c rice water, unsweet almond milk, diet iced tea Has questions about pancakes and hashbrowns. Misses eating pasta. Anthropometrics: Ht: 6'4 Wt: 348# 06/2023 personal goal: 300# Physical Activity: was walking on treadmill, but none last couple weeks. Some yard work. Walks at work, surgical services manager, movement in building. Avg [phone] steps per day. 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 Provided appropriate educational handouts. Discussed the following topics: Completed intake assessment. Discussed barriers to care. Pathophysiology of T2DM HgA1c, its correlation to blood glucose numbers, and rationale for goal Importance of self-monitoring, how often, and when to check. Suggested checking at different times to evaluate meals Plate Method, impact of macronutrients on blood sugar, meal timing, pairing macronutrients and spreading out carbohydrates for better blood glucose management Recommended servings for carbohydrates at meals and snacks Heart health nutrition Role of physical activity and following provider guidelines for safety Created SMART goals for patient self-care and success. Goals: Treadmill 30 min 3-4x per week Try high fiber CHO at meals and check BG Bring BG next visit Postprandial readings check at 1-2 hr Follow-up: MARTI FERNANDEZ follow-up in 3-4 weeks Licha Stauffer RDN, JIM Certified Diabetes Care and [employer] P: [phone] Thank you for this referral
== END ==
PROVIDERS: PCP Family Medicine; Referring Provider Family Medicine
DX: E66.01 Morbid (severe) obesity due to excess calories (principal); E11.9 Type 2 diabetes mellitus without complications; Z68.41 Body mass index [BMI] 40.0-44.9, adult; Z71.3 Dietary counseling and surveillance
CPT/HCPCS: 97802

== ENCOUNTER → 2023-10-10 07:15 | Outpatient (CLI) | payer OTHER, SELFPAY ==
[2021-07-17 08:55] VITALS: BMI 40.5
[2023-10-10 08:17] LABS: Hemoglobin A1C% w Est Avg Glu 6.1 % (4.0-6.0)
[2023-10-10 08:25] LABS: Alanine Aminotransferase 25 IU/L (<50); Albumin 4.3 g/dL (3.5-5.0); Albumin Globulin Ratio 1.5 (1.0-2.8); Alkaline Phosphatase 55 U/L (38-126); Aspartate Aminotransferase 23 IU/L (17-59); BUN Creatinine Ratio 17.9 (6-22); Bilirubin Total 0.4 mg/dL (0.2-1.3); Blood Urea Nitrogen 17 mg/dL (9-20); Calcium 9.2 mg/dL (8.4-10.2); Carbon Dioxide 29 mmol/L (22-32); Chloride 105 mmol/L (98-107); Estimated Glomerular Filt Rate > 60 mL/min (>60); Globulin 2.9 g/dL (1.7-4.1); Glucose 127 mg/dL (70-100); HEMOLYSIS < 15 (0-50); Potassium 4.9 mmol/L (3.4-5.1); Sodium 141 mmol/L (137-145); Total Protein 7.2 g/dL (6.3-8.2)
== END ==
PROVIDERS: PCP Family Medicine; Referring Provider Family Medicine; Visit Provider Family Medicine
DX: E11.9 Type 2 diabetes mellitus without complications (principal); I10 Essential (primary) hypertension
CPT/HCPCS: 36415; 80053; 83036

== ENCOUNTER → 2023-12-25 07:01 | Outpatient (CLI) | payer OTHER, SELFPAY ==
[2021-07-17 08:55] VITALS: BMI 40.5
[2023-12-25 08:48] LABS: Alanine Aminotransferase 23 IU/L (<50); Albumin 4.3 g/dL (3.5-5.0); Albumin Globulin Ratio 1.5 (1.0-2.8); Alkaline Phosphatase 53 U/L (38-126); Aspartate Aminotransferase 24 IU/L (17-59); Bilirubin Total 0.6 mg/dL (0.2-1.3); Blood Urea Nitrogen 16 mg/dL (9-20); Calcium 9.7 mg/dL (8.4-10.2); Carbon Dioxide 28 mmol/L (22-32); Chloride 104 mmol/L (98-107); Estimated Glomerular Filt Rate > 60 mL/min (>60); Globulin 2.9 g/dL (1.7-4.1); Glucose 121 mg/dL (70-100); HEMOLYSIS < 15 (0-50); Potassium 4.4 mmol/L (3.4-5.1); Sodium 139 mmol/L (137-145); Total Protein 7.2 g/dL (6.3-8.2)
[2023-12-25 09:14] LABS: TSH w/ Reflex to FT4 2.03 uIU/mL (0.47-4.68)
[2023-12-25 10:15] LABS: Hemoglobin A1C% w Est Avg Glu 5.7 % (4.0-6.0)
== END ==
PROVIDERS: PCP Family Medicine; Referring Provider Family Medicine; Visit Provider Family Medicine
DX: E11.9 Type 2 diabetes mellitus without complications (principal); I10 Essential (primary) hypertension; E66.01 Morbid (severe) obesity due to excess calories; Z68.41 Body mass index [BMI] 40.0-44.9, adult
CPT/HCPCS: 36415; 80053; 83036; 84443; 84550

== ENCOUNTER → 2024-04-05 10:03 | Outpatient (CLI) | payer OTHER, SELFPAY ==
[2021-07-17 08:55] VITALS: BMI 40.5
[2024-04-05 11:16] LABS: Add Manual Diff / Slide Review NO; Basophils Absolute Auto 0 /uL (0-100); Basophils Percent Auto 0.6 % (0-2); Eosinophils Absolute Auto 100 /uL (0-450); Eosinophils Percent Auto 1.8 % (2-4); Hematocrit 41.3 % (41-53); Hemoglobin 14.1 g/dL (13.5-17.5); Lymphocytes Absolute Auto 1800 /uL (1100-4500); Mean Corpuscular HGB Conc 34.2 % (30-36); Mean Corpuscular Hemoglobin 30.6 PG (26-34); Mean Corpuscular Volume 89.4 fL (80-100); Monocytes Absolute Auto 300 /uL (0-900); Monocytes Percent Auto 5.2 % (3-14); Neutrophils Absolute Auto 3500 /uL (1500-7000); Neutrophils Percent Auto 61.4 % (50-75); Platelet Count 268 X10^3/uL (150-400); Red Blood Cell Count 4.62 X10^6/uL (4.5-5.9); Red Cell Distribution Width 13.9 % (11.6-14.8); White Blood Cell Count 5.8 X10^3/uL (4.5-11.0)
[2024-04-05 11:40] LABS: Alanine Aminotransferase 25 IU/L (<50); Albumin 4.5 g/dL (3.5-5.0); Albumin Globulin Ratio 1.6 (1.0-2.8); Alkaline Phosphatase 52 U/L (38-126); Aspartate Aminotransferase 26 IU/L (17-59); BUN Creatinine Ratio 14.9 (6-22); Bilirubin Total 0.4 mg/dL (0.2-1.3); Blood Urea Nitrogen 18 mg/dL (9-20); Calcium 9.8 mg/dL (8.4-10.2); Carbon Dioxide 29 mmol/L (22-32); Chloride 103 mmol/L (98-107); Estimated Glomerular Filt Rate > 60 mL/min (>60); Globulin 2.8 g/dL (1.7-4.1); Glucose 184 mg/dL (70-100); HEMOLYSIS < 15 (0-50); Potassium 4.8 mmol/L (3.4-5.1); Sodium 139 mmol/L (137-145); Total Protein 7.3 g/dL (6.3-8.2)
[2024-04-05 11:52] LABS: Creatinine Urine Random 147.52 mg/dL
[2024-04-05 11:59] LABS: Microalbumin Urine Random 3.8 mg/dL (0-1.6)
== END ==
PROVIDERS: PCP Family Medicine; Referring Provider Family Medicine; Visit Provider Family Medicine
DX: E11.9 Type 2 diabetes mellitus without complications (principal); I10 Essential (primary) hypertension
CPT/HCPCS: 36415; 80053; 82043; 82570; 83036; 85025

== ENCOUNTER → 2024-12-07 08:24 | Outpatient (CLI) | payer OTHER, SELFPAY ==
[2021-07-17 08:55] VITALS: BMI 40.5
[2024-12-07 09:05] LABS: Hemoglobin A1C% w Est Avg Glu 7.2 % (4.0-6.0)
[2024-12-07 09:16] LABS: Alanine Aminotransferase 36 IU/L (<50); Albumin 4.5 g/dL (3.5-5.0); Albumin Globulin Ratio 1.4 (1.0-2.8); Alkaline Phosphatase 59 U/L (38-126); Blood Urea Nitrogen 17 mg/dL (9-20); Calcium 9.5 mg/dL (8.4-10.2); Carbon Dioxide 27 mmol/L (22-32); Chloride 102 mmol/L (98-107); Estimated Glomerular Filt Rate > 60 mL/min (>60); Globulin 3.2 g/dL (1.7-4.1); Glucose 201 mg/dL (70-99); HEMOLYSIS < 15 (0-50); Potassium 4.9 mmol/L (3.4-5.1); Sodium 139 mmol/L (137-145); Total Protein 7.7 g/dL (6.3-8.2)
[2024-12-07 09:47] LABS: TSH w/ Reflex to FT4 1.69 uIU/mL (0.47-4.68)
== END ==
PROVIDERS: PCP Family Medicine; Referring Provider Family Medicine; Visit Provider Family Medicine
DX: E11.9 Type 2 diabetes mellitus without complications (principal); G47.33 Obstructive sleep apnea (adult) (pediatric); E66.01 Morbid (severe) obesity due to excess calories; Z68.41 Body mass index [BMI] 40.0-44.9, adult
CPT/HCPCS: 36415; 80053; 83036; 84443

== ENCOUNTER → 2025-03-11 08:12 | Outpatient (CLI) | payer OTHER, SELFPAY ==
[2021-07-17 08:55] VITALS: BMI 40.5
[2025-03-11 09:38] LABS: Alanine Aminotransferase 36 IU/L (<50); Albumin 4.5 g/dL (3.5-5.0); Albumin Globulin Ratio 1.4 (1.0-2.8); Alkaline Phosphatase 55 U/L (38-126); Blood Urea Nitrogen 16 mg/dL (9-20); Calcium 9.6 mg/dL (8.4-10.2); Carbon Dioxide 27 mmol/L (22-32); Chloride 106 mmol/L (98-107); Cholesterol 159 mg/dL (140-199); Estimated Glomerular Filt Rate > 60 mL/min (>60); Globulin 3.2 g/dL (1.7-4.1); Glucose 128 mg/dL (70-99); HDL Cholesterol 39 mg/dL (40-60); HEMOLYSIS < 15 (0-50); Potassium 5.1 mmol/L (3.4-5.1); Sodium 141 mmol/L (137-145); Total Protein 7.7 g/dL (6.3-8.2); Triglycerides 168 mg/dL (35-150)
[2025-03-11 09:50] LABS: Hemoglobin A1C% w Est Avg Glu 6.6 % (4.0-6.0)
== END ==
LOC: RAD 08:13
PROVIDERS: PCP Family Medicine; Referring Provider Family Medicine; Visit Provider Family Medicine
DX: E66.01 Morbid (severe) obesity due to excess calories (principal); E11.9 Type 2 diabetes mellitus without complications; I10 Essential (primary) hypertension; Z68.41 Body mass index [BMI] 40.0-44.9, adult; Z12.5 Encounter for screening for malignant neoplasm of prostate
CPT/HCPCS: 36415; 80053; 80061; 83036; G0103